=== PATIENT | male | born 1955 | race Caucasian/White ===

== ENCOUNTER 2024-03-06 19:14 | Emergency (ER) | payer MEDICARE, OTHER, SELFPAY ==
[2024-03-06 19:19] VITALS: BP 160/90
[2024-03-06 20:00] LABS: % Basophils 0.5 % (0-2); % Eosinophils 0.1 % (0-6); % Immature Granulocytes 0.5 % (0-0.5); % Lymphocytes 18.5 % (20.5-51.1); % Monocytes 6.2 % (1.7-9.3); % Neutrophils 74.2 % (42.2-75.2); Absolute Lymphocytes 1.5 10^3/uL (1.2-3.4); Absolute Monocytes 0.5 10^3/uL (0.1-0.6); Absolute Neutrophils 6.2 10^3/uL (1.4-6.5); Hematocrit 34.8 % (39.0-52.0); Hemoglobin 11.5 g/dL (13.0-18.0); Mean Corpuscular Hgb 29.6 pg (27.0-31.0); Mean Corpuscular Volume 89.5 fL (80.0-94.0); Mean Platelet Volume 10.4 fL (7.4-10.4); Nucleated Red Blood Cells % 0 % (-); Platelet Count 165 10^3/uL (130-400); Red Blood Cell Count 3.89 10^6/uL (4.70-6.10); Red Cell Dist. Width 13.8 % (11.5-14.5); White Blood Cell Count 8.3 10^3/uL (4.8-10.8)
[2024-03-06 20:21] LABS: ALT (SGPT) 18 U/L (0-50); AST (SGOT) 23 U/L (17-59); Albumin 4.1 g/dl (3.5-5.0); Alkaline Phosphatase 46 U/L (38-126); Blood Urea Nitrogen 25 mg/dl (9-20); Calcium 8.9 mg/dl (8.4-10.2); Carbon Dioxide 30 mmol/L (22-30); Chloride 100 mmol/L (98-107); Glucose 110 mg/dl (70-99); Sodium 138 mmol/L (135-145); Total Bilirubin 0.4 mg/dl (0.2-1.3); Total Protein 6.6 g/dl (6.3-8.2); eGFR > 60.00
[2024-03-06 20:25] LABS: Troponin I 0.015 ng/ml
[2024-03-06 22:05] VITALS: BP 137/85
[2024-03-06 22:06] VITALS: BMI 29.3
[2024-03-06 23:00] VITALS: BP 143/99
[2024-03-06 23:53] LABS: NT-proBNP 1250 pg/ml
[2024-03-07] VITALS: BP 164/102
[2024-03-07 01:00] VITALS: BP 156/87
[2024-03-07 01:11] VITALS: BP 157/96
[2024-03-07] MEDS: LASIX 40 MG IV (01:11)
--- NOTE | 2024-03-07 01:39 | ED.GENMED ---
History of Present Illness
General
Chief Complaint: Cardiac Symptoms
Source: patient and family (Daughter, sister)
Exam Limitations: none
Time Seen by Provider: 03/06/24 21:39
Nursing documentation reviewed up to this point in time: agreed with
History of Present Illness
History of Present Illness:
68-year-old male with a past medical history of atrial fibrillation status postcardiac ablation currently on Eliquis, hypertension who presents to the ER with his daughter for evaluation of shortness of breath. Patient reports that symptoms have
been ongoing for about 2 weeks-- he says shortness of breath mainly with laying flat and with heavy exertion. He has not had any chest pain but he has had episodes of palpitations that he has attributed to 'panic attacks.' He has not had any
cough. He says that initially he attributed the symptoms to bronchitis as he has recurrent bronchitis around this time of year and oftentimes does not get a cough however he went to his primary doctor today finally and apparently an EKG showed he
was in atrial fibrillation again and he came to the ER. His normal crosscutter is Dr. Rowell. He denies any fevers, chills. He has not noticed significant swelling in the legs although he has noticed some swelling in the abdominal wall. No
other complaints noted. He is compliant with all of his medications including his Eliquis.
Past History
Past History
ED Past Medical History: Arrthythmia, HTN, Psychiatric (Embrol for psoriatic arthritis Klonopin and Seraquel started one week ago. Hx anxiety.) and Other (Herniated discs C-3,4,5 right shoulder surgery 5 yrs ago from work accident)
ED Past Surgical History: Other (multiple left knee surgeries)
Social History
Tobacco: Smoker
Alcohol: Chronic alcoholic
Drug: Marijuana
Personal:
Living: with family
Employment: Disabled
Family History
Family History: Other (reviewed and noncontributory)
Review of Systems
Review of Systems
All Other Systems: ROS reviewed and negative except as documented in HPI and ROS
Constitutional: Denies fever or chills
Respiratory: Reports trouble breathing; Denies cough
Cardiac: Reports palpitations; Denies chest pain or syncope
ABD/GI: Denies abdominal pain, nausea or vomiting
: Denies flank pain
Musculoskeletal: Denies edema, neck pain or back pain
Neurological: Denies dizzy or headache
Phy Exam
Physical Exam
Physical Exam:
General: Awake, alert, oriented x3; no acute distress
Head: Normocephalic, atraumatic
Eyes: Conjunctiva normal
Throat: Airway intact, handling secretions
Neck: Trachea midline, no JVD
Lungs: Clear to auscultation bilaterally, no wheezing, rales, rhonchi
Heart: Regular rate and irregular rhythm, systolic murmur
Abd: Soft, non distended, nontender
Neuro: No gross deficits
Extremities: Trace edema around the ankles, good pulses in all extremities
Scores
Heart Failure Risk
Heart Failure Risk Score: Yes
History of Stroke or TIA: No
History of intubation for respiratory distress: No
Heart rate on ED arrival >/= 110: No
SaO2 <90% on arrival on room air: No
HR >/=110 during 3min walk test (or too ill to perform test): No
ECG has acute ischemic changes: No
Urea >/=12mmol/L (BUN 33.6mg/dL): No
Serum CO2>/=35mmol/L: No
Troponin I or T elevated to VA Level (0.4mg/dL): No
NT-proBNP >/=5,000ng/L (5,000pg/ml): No
HF Risk Score: 0
Admission Status: LOW RISK 2.8% Consider discharge to home with f/u visit to PCP/Airplane Technician
Heart Score for Chest Pain Patients
STEMI patient?: Not applicable
Withdrawal Assessment of Alcohol
Withdrawal Assessment Completed?: Not applicable
Course
Orders/Labs/Results
Orders:
Orders
03/06/24 19:24
Electrocardiogram (*1) Urgent
Reason for Study: Atrial Fibrillation
EKG- Treatment ONCE
CR Chest - 2 Views Urgent
Comment:
Reason For Exam: SOB; CHEST PAIN
03/06/24 19:39
Complete Blood Count/With Diff Urgent
Comprehensive Metabolic Panel Urgent
Troponin I Urgent
03/06/24 23:24
NT-proBNP Urgent
03/07/24 00:49
Furosemide [Lasix] 40 mg IV NOW STA
Abnormal Lab Results
03/06/24
19:39
RBC 3.89 L 10^6/uL
(4.70-6.10)
Hgb 11.5 L g/dL
(13.0-18.0)
Hct 34.8 L %
(39.0-52.0)
Lymphocytes % 18.5 L %
(20.5-51.1)
BUN 25 H mg/dl
(9-20)
Glucose 110 H mg/dl
(70-99)
03/06/24 19:39
03/06/24 19:39
Vital Signs
Initial and Last Documented VS:
Initial Vital Signs
Temp Pulse Resp BP Pulse Ox
36.8 C 76 24 160/90 97
03/06/24 19:19 03/06/24 19:19 03/06/24 19:19 03/06/24 19:19 03/06/24 19:19
Last Documented Vital Signs
Temp Pulse Resp BP Pulse Ox
36.8 C 73 13 157/96 95
03/06/24 19:19 03/07/24 01:15 03/07/24 01:15 03/07/24 01:11 03/07/24 01:15
MDM/Problems Addressed
Differential Diagnosis Includes:
Symptomatic A-fib, CHF, pneumonia/bronchitis
MDM/Problems Addressed:
68-year-old male presents for evaluation of shortness of breath over the past 2 weeks associated with some swelling of the abdomen, orthopnea, palpitations. Found to be in A-fib for the first time since his cardiac ablation at PCP office today.
Follows with Dr. Rowell for cardiology. He was hypertensive in triage and blood pressure normalized by my assessment. Rest of his vitals are within normal limits including respiratory rate and pulse ox. Physical exam as above. He had lab
work sent off including a CBC which showed stable anemia, CMP which showed no clinically significant abnormalities. Troponin undetectable proBNP marginal at 1250. Chest x-ray reviewed by me shows no overt pulmonary edema. My suspicion is that
this may be some mild CHF triggered by atrial fibrillation. Fortunately he is rate controlled with heart rate in the 60s or 70s here. Furthermore does not appear markedly volume overloaded. Discussed case with cardiology, they can schedule for
outpatient cardioversion and close follow-up in the office. I spoke to the patient at length and offered admission versus discharge with close follow-up plan through cardiology as described; after discussion with patient, daughter as well as
patient's sister who is a nurse practitioner patient ultimately opted to trial outpatient management. Will give a dose of IV Lasix and provide dose for the next few days. Advised him to monitor blood pressure, fluid intake, salt intake closely
over the next few days and to return immediately if he feels symptoms are worsening at any point. He feels very comfortable with this plan. All questions answered.
Chronic conditions affecting care:
Atrial fibrillation
Acute Exacerbation and/or Progression of Chronic Illness:
Acutely hypertensive improved without intervention continue to monitor but no emergent antihypertensives indicated at this point
Acute Exacerbation and/or Progression of Chronic Illness: HTN
*Radiology
Radiology exam reviewed: preliminary read by ED provider
*Pulse Oximetry
Patient hypoxic: no
*EKG
Interpreted by ED Provider?: Yes
Comparison EKG: changes noted (A-fib)
Heart Rate: 66
Rate: normal
Rhythm: a-fib
Gary: normal axis
QRS Pattern: wide non-specific
Ischemia: no ischemia
*Critical Care Note
Total Time (30-74mins, 75-104mins- exclusive of procedures): Not Applicable
Data Reviewed
Source: patient, records and family
Patient Management
Social determinants of health affecting care: Strong social support
Discussion with other providers: Wrapper Layer And Examiner Soft Work (Discussed with cardiology)
Escalation/DeEscalation of care consider admission/obs:
Offered admission, using shared decision making opted for discharge with close follow-up
ED Attending Note
-
Portions of this chart may have been created with voice recognition software.� Occasional wrong word or��sound alike� substitutions may have occurred due to the inherent limitations of voice recognition software.
Discharge Plan
Departure
Patient Disposition: Home (Routine Discharge)
Date of Disposition: 03/07/24
Time of Disposition: 00:49
Patient with high blood pressure during this ER visit?: Yes
Discharge Problem:
Atrial fibrillation, CHF (congestive heart failure)
Instructions: Atrial fibrillation - Discharge instructions, *CBC Heart Failure Instructions
Prescriptions:
New
furosemide [Lasix] 20 mg tablet
20 mg PO DAILY Qty: 5 0RF
No Action
mirtazapine 30 MG tablet
45 mg PO HS
diazepam [Valium] 10 MG tablet
10 mg PO TID PRN (Reason: anxiety)
ustekinumab [Stelara] 45 MG/0.5 ML syringe
45 mg SC [id number]
lorazepam 1 MG tablet
2 mg PO TID
apixaban [Eliquis] 5 MG tablet
5 mg PO BID
sotalol 80 MG tablet
80 mg PO BID Qty: 60 5RF
carisoprodol 350 MG tablet
350 mg PO TID
oxycodone-acetaminophen 5 MG/325 MG tablet
2 tab PO Q4H
metronidazole 500 MG tablet
500 mg PO TID Qty: 42 0RF
acetaminophen [Tylenol Extra Strength] 500 MG tablet
500 mg PO Q4 0RF
cefpodoxime 200 MG tablet
200 mg PO BID Qty: 28 0RF
docusate sodium 100 MG capsule
100 mg PO BID Qty: 60 0RF
Referrals:
Robert Brian DO [Family Provider] -
Angelique Rowell MD [Active] - Follow up in 2-3 days
Activity Restrictions/Additional Instructions:
Thank you for visiting the Emergency Department at [facility].
1. Please schedule a follow up appointment as directed. Call first thing tomorrow morning to make an appointment.
2. If indicated, please take your medications as instructed and indicated on discharge paperwork.
3. If any of your symptoms do not improve, or persist, or become more severe within 6-12 hours, please return to the emergency department for further care.
4. Please return to the emergency department if you develop a headache, neck pain/stiffness, fever greater than 100.4F, chest pain, shortness of breath, persistent nausea, vomiting, slurred speech, difficulty walking, numbness/tingling, weakness,
signs of infection or any other symptoms that are worrisome to you.
Please call [phone] if you have any questions.
Interventions
Interventions:
*Risk Screen - Suicide Last Done: 03/06/24 19:19
*General Assessment Last Done: 03/06/24 21:53
*Neglect/Abuse Screening Last Done: 03/06/24 19:19
ED- Fall Risk Assessment Last Done: 03/06/24 21:53
*ED COVID-19 Vaccine History Last Done: 03/06/24 21:53
ED- Pulmonary Assessment Last Done: 03/06/24 22:06
ED- Cardiac Assessment Last Done: 03/06/24 22:06
Discharge Date and Time
Print Language: YORUBA
== END 2024-03-07 01:25 | disposition home or self-care (01) ==
LOC: EMR 19:14
PROVIDERS: EMERGENCY PHYSICIAN Emergency Medicine; FAMILY PHYSICIAN Family Medicine
DX: I48.91 Unspecified atrial fibrillation (principal); I50.9 Heart failure, unspecified; I11.0 Hypertensive heart disease with heart failure; Z79.01 Long term (current) use of anticoagulants; F17.200 Nicotine dependence, unspecified, uncomplicated
CPT/HCPCS: 99285; 96374; 71046; 80053; 83880; 84484; 85025; 93005

== ENCOUNTER 2024-04-01 03:19 | Inpatient (IN) | payer MEDICARE, OTHER, SELFPAY ==
[2024-03-31 22:52] VITALS: BP 92/58
[2024-03-31 23:03] VITALS: BP 92/70
[2024-03-31 23:18] VITALS: BMI 27.5
[2024-03-31 23:21] LABS: % Basophils 0.3 % (0-2); % Eosinophils 0.3 % (0-6); % Immature Granulocytes 0.5 % (0-0.5); % Lymphocytes 10.6 % (20.5-51.1); % Monocytes 11.5 % (1.7-9.3); % Neutrophils 76.8 % (42.2-75.2); Absolute Immature Granulocytes 0.1 10^3/uL (0-0.05); Absolute Lymphocytes 1.3 10^3/uL (1.2-3.4); Absolute Monocytes 1.4 10^3/uL (0.1-0.6); Absolute Neutrophils 9.3 10^3/uL (1.4-6.5); Hematocrit 31.7 % (39.0-52.0); Hemoglobin 10.7 g/dL (13.0-18.0); Mean Corp Hgb Conc. 33.8 g/dL (33.0-37.0); Mean Corpuscular Hgb 29.4 pg (27.0-31.0); Mean Corpuscular Volume 87.1 fL (80.0-94.0); Mean Platelet Volume 9.7 fL (7.4-10.4); Nucleated Red Blood Cells % 0 % (-); Platelet Count 307 10^3/uL (130-400); Red Blood Cell Count 3.64 10^6/uL (4.70-6.10); Red Cell Dist. Width 13.3 % (11.5-14.5); White Blood Cell Count 12.1 10^3/uL (4.8-10.8)
[2024-03-31 23:24] VITALS: BP 114/81
--- NOTE | 2024-03-31 23:26 | ED.GENMED ---
History of Present Illness
General
Chief Complaint: Change in Mental Status
Source: patient, records and family
Time Seen by Provider: 03/31/24 23:12
History of Present Illness
History of Present Illness:
This patient is a 68-year-old male who has been reportedly confused for the last 2 days. Daughter is primary historian as she is bedside and offers most of the information. She states that her mother contacted her in the middle of the night of
March 29 leading into March 30 with report that patient was 'not making any sense', described as words being slurred or responding inappropriately. This is wax and wane over the last 2 days. He is also noted to be increasingly clumsy. Last
night, patient states that he went to the bathroom and just suddenly felt imbalance and fell down. He did not lose consciousness or hit his head. However, he was unable to get back up and had to crawl over period of approximately 4 hours to a
chair. This morning at around noon daughter came and found him in the bed which would be unusual for him. She came back at 3 PM and he was still in the bed so she got him up and brought him to a chair. She states at that time it sounded like his
lungs were 'congested'. She noted that he seemed to have difficulty with balance while assisting him to the chair. Given symptoms, decision made to bring him here. Patient does describe events of the fall last night. He is at times sleepy but
arousable to voice and interactions. He has a very mild left frontal headache. He denies neck pain, numbness, tingling, change in vision, change in speech, palpitations, chest pain, dyspnea. He says he is 'fighting a cold', associated with a
recent cough but denies fever nausea or vomiting. He denies abdominal pain. He notes pain at the right anterior lower costal area as well as the right posterior mid back/thorax area that developed after he fell. He denies extremity pain or other
complaints.
Past History
Past History
ED Past Medical History: Arrthythmia, HTN, Psychiatric (Embrol for psoriatic arthritis Klonopin and Seraquel started one week ago. Hx anxiety.) and Other (Herniated discs C-3,4,5 right shoulder surgery 5 yrs ago from work accident, nonischemic
cardiomyopathy)
ED Past Surgical History: Cardiac and Other (multiple left knee surgeries, thoracic aortic aneurysm repair)
Social History
Tobacco: Smoker
Alcohol: Former
Drug: Marijuana
Personal:
Living: with family
Employment: Disabled
Family History
Family History: Other (reviewed and noncontributory)
Phy Exam
Physical Exam
Physical Exam:
GENERAL: Awake but sleepy, in no apparent distress
EYE: pupils equal and reactive, no photophobia, EOMI, no nystagmus
NECK: Supple, no significant adenopathy, no midline tenderness.
ENT: o/p clr, mm slightly dry
CARDIAC: Irregularly irregular, tachycardic
LUNGS: Equal breath sounds bilaterally, no acute respiratory distress, scattered wheezes noted. There is tenderness to palpation noted at the left inferior anterior chest wall without associated bruising, swelling, crepitus, deformity.
ABDOMEN: Soft, without focal tenderness, no r/g, no cvat
NEUROLOGICAL: Awake and oriented, no focal neuro deficits, [id number] normal, motor 5 out of 5, sensory intact, cranial nerves II through XII intact
SKIN: Warm and dry, skin intact. There is a healing abrasion noted at the left forearm without secondary infection
MUSCULOSKELETAL: No edema, well perfused.
PSYCH: Normal and appropriate interaction but sleepy.
BACK: No midline tenderness to palpation. Small linear abrasion noted at the right posterior thorax/mid back area without associated deformity
Course
Orders/Labs/Results
Orders:
Orders
03/31/24 23:11
EKG [Electrocardiogram (*1)] Urgent
Reason for Study: Tachycardia
EKG- Treatment ONCE
03/31/24 23:12
Complete Blood Count/With Diff Urgent
Comprehensive Metabolic Panel Urgent
03/31/24 23:21
Urinalysis Reflex To Culture Urgent
Date Specimen was Collected: 03/31/24
Time Specimen was Collected: 23:21
03/31/24 23:25
Cardiac Monitoring- Treatment ONCE
Pulse Ox/cont/shift [RESP] Urgent
Quantity: 1
03/31/24 23:38
CPK [Creatine Phosphokinase] Urgent
Lactic Acid Q4H
Comment: CANCEL 2nd LACTIC ACID IF 1st LACTIC ACID IS LESS THAN 2
Troponin I Urgent
Blood Culture Q30M
MIKE Source: Blood/Venous
Specimen Description:
Influenza A+B Rapid Molecular Urgent
MIKE Source: Nasal Swab
Specimen Description:
04/01/24 00:00
CT Cervical Spine W/o Iv Contr Urgent
Reason For Exam: fall on eliquis
CT Head W/o Iv Contrast Urgent
Reason For Exam: fall on eliquis
04/01/24 00:02
CR Ribs-right 3 Vw W/pa Chest* Urgent
Reason For Exam: fall
04/01/24 00:48
CefTRIAXone [Rocephin] 1,000 mg IV NOW STA
04/01/24 00:50
Doxycycline [Vibramycin] 100 mg PO NOW STA
04/01/24 01:01
COVID-19 Antigen Urgent
Source: Nasal Swab
Blood Culture Q30M
MIKE Source: Blood/Venous
Specimen Description:
04/01/24 03:00
Admit/Transfer Patient As Directed
Co-Sign Provider:
Level of Care: Inpatient admission
Assign to:: IMU- Intermediate Care
Physician / Group: Sonu
Diagnosis: Pneumonia, Sepsis, A-Fib with RVR
Reason for Hospitalization: Pneumonia, Sepsis, A-Fib with RVR
Expected length of stay greater than two midnights?: Yes
ELOS- Estimated Length of Stay in days: 4
I certify the patient meets the requirements for IP care: Yes
PRN Pain Medication Management As Directed
May give lesser potent ordered pain med per pt: Yes
preference::
Protocol:: Medication orders for pain may be administered in a
manner that supports deferring to patient preference
when the pt is:
- Requesting an ordered lesser potent pain medication.
Least to most potent pain medications are defined
as: acetaminophen < NSAID < tramadol < opioids
(morphine, oxycodone, hydromorphone).
- Requesting a lesser dose of the same medication IF
ORDERED.
- Requesting a less intrusive route of administration
if both routes are prescribed by the provider (PO <
IV).
04/01/24 03:02
Code Status As Directed
Resuscitation Status: Full Code
04/01/24 03:14
Acetaminophen [Tylenol] 650 mg .ROUTE .STK-MED ONE
04/01/24 03:26
Acetaminophen [Tylenol] 650 mg PO Q4HPRN PRN
Albuterol Nebs [Ventolin Nebules] 2.5 mg INH R Q4HPRN PRN
Diltiazem 125 mg/125 ml Nss [Cardizem] 125 mg in 125 ml IV PER PROTOCOL
Initial dose in mg/hr, then titrate:: 5
Titrate to keep:: Heart rate 80-100 bpm
Titrate by mg/hr:: 5 mg/hr
Frequency of titrations (minutes):: 15
Maximum dose in mg/hr:: 15
HYDROmorphone [Dilaudid] 0.5 mg IV Q4HPRN PRN
Ondansetron Injectable [Zofran] 4 mg IV Q6HPRN PRN
Oxycodone/Acetaminophen [Percocet 5/325] 2 tablet PO Q4H PRN
04/01/24 03:26
CARDIOLOGY CONSULT Routine
Consulting Provider: Hector,Irfan M.
Was physician already notified: No
Reason for consult: A-Fib with RVR
Consult Notification Routine
Specialty to Notify: Cardiology
Date consulting provider notified: 04/01/24
Time consulting provider notified: 08:36
Notified:: Provider
Activity As Directed
Activity Level: Ambulate
With Assistance
Bladder Scan As Directed
Follow Bladder Retention/Intermittent Cath Algorithm?: Yes
PRN if no void in __ hours: 6
Frequency: Per Retention Algorithm
If Bladder Scan Result >: 400
then:: Straight cath
EKG with chest pain [ECG as needed] As Directed
ECG as needed for:: Chest Pain
I/O [Intake/ Output] As Directed
Frequency: Per unit guidelines
Neurological Checks As Directed
Frequency: q4h
Straight Cath As Directed
Frequency: Per Retention Algorithm
Additional Instructions: straight cath as needed per acute urinary retention algorithm for 24 hrs
Additional Instructions: for bladder scan greater than 400 mL
Vital Signs As Directed
Frequency: Per unit guidelines
Weight As Directed
Frequency: Daily
Oxygen Therapy [O2 Therapy] [RESP] Routine
Titrate/Wean O2 to maintain O2 sat greater than (%): 94
Ot Eval And Treat Routine
PT Consult [Pt Eval And Treat] Routine
Activity Level: Ambulate
With Assistance
04/01/24 04:00
Lactated Ringers [Lr] 1,000 ml IV 80 mls/hr
04/01/24 04:26
B12 [Vitamin B12] Routine
Basic Metabolic Panel IN AM
Complete Blood Count/No Diff IN AM
Glycohemoglobin (HgbA1c) Routine
Iron Routine
TSH Reflex To Free T4 Routine
Total Iron Binding Routine
Troponin I Q6H
Urine Microscopic Reflex Cult Urgent
Urine Culture Urgent
MIKE Source: U
Specimen Description:
Date Specimen was Collected: 03/31/24
Time Specimen was Collected: 23:21
04/01/24 06:00
EKG [Electrocardiogram (*1)] IN AM
Reason for Study: Chest Pain
Regular
At Your Request: Full Participation
04/01/24 08:00
Apixaban [Eliquis] 5 mg PO BID
Doxycycline [Vibramycin] 100 mg PO Q12
Guaifenesin [Mucinex] 1,200 mg PO Q12
Lorazepam [Ativan] 1 mg PO TID
Metoprolol Xl [Toprol Xl] 100 mg PO DAILY
04/01/24 11:30
Troponin I Q6H
04/01/24 17:23
Troponin I Q6H
04/02/24 04:00
CefTRIAXone [Rocephin] 1,000 mg IV Q24H
Abnormal Lab Results
03/31/24 03/31/24
23:12 23:38
WBC 12.1 H 10^3/uL
(4.8-10.8)
RBC 3.64 L 10^6/uL
(4.70-6.10)
Hgb 10.7 L g/dL
(13.0-18.0)
Hct 31.7 L %
(39.0-52.0)
Abs Immat Gran (auto) 0.1 H 10^3/uL
(0-0.05)
Absolute Neuts (auto) 9.3 H 10^3/uL
(1.4-6.5)
Absolute Monos (auto) 1.4 H 10^3/uL
(0.1-0.6)
Neutrophils % 76.8 H %
(42.2-75.2)
Lymphocytes % 10.6 L %
(20.5-51.1)
Monocytes % 11.5 H %
(1.7-9.3)
Sodium 134 L mmol/L
(135-145)
BUN 34 H mg/dl
(9-20)
Glucose 113 H mg/dl
(70-99)
Calcium 8.3 L mg/dl
(8.4-10.2)
Creatine Kinase 242 H U/L
(55-170)
Albumin 3.2 L g/dl
(3.5-5.0)
03/31/24 23:12
03/31/24 23:12
Vital Signs
Initial and Last Documented VS:
Initial Vital Signs
Temp Pulse Resp BP Pulse Ox
97.9 F 75 18 92/58 97
03/31/24 22:52 03/31/24 22:52 03/31/24 22:52 03/31/24 22:52 03/31/24 22:52
Last Documented Vital Signs
Temp Pulse Resp BP Pulse Ox
99.0 F 85 29 118/81 94
04/03/24 07:35 04/03/24 08:00 04/03/24 08:00 04/03/24 08:00 04/03/24 08:44
*Critical Care Note
Total Time (30-74mins, 75-104mins- exclusive of procedures): Not Applicable
Update Note
Update Note:
Patient presents to the Emergency Department with __reported confusion
Number and Complexity of Problems Addressed at the Encounter
� Chronic conditions affecting care:
� Acute Exacerbation and/or Progression of Chronic Illness:
� Differential Diagnosis includes: But not limited to pneumonia, influenza, UTI, intracranial bleed, etc. etc.
Amount and/or Complexity of Data to be Reviewed and Analyzed
� I performed an independent evaluation of and my interpretation is:
EKG: Read by me, irregularly irregular suspect A-fib with RVR, right bundle branch block, no acute ischemia
CT:
Xrays:
Laboratory Studies: Mild white blood cell count elevation, relatively baseline anemia
Other:
� Review of other/old records reveals: Patient was admitted March 2021 with sepsis secondary to pneumonia requiring a chest tube for a parapneumonic pleural effusion
� Clinical information was obtained by an independent historian: Daughter who is bedside
� Prescriptions/Medications Considered but not given:
� Further testing considered but not performed:
Risk of Complications and/or Morbidity or Mortality of Patient Management
� Social determinants of health affecting care:
� Discussion with other providers (PCP, Hospitalists, Consultants, etc):
� Escalation of care including admission/observation vs risk of discharge considered: 12:43 AM consideration for IV fluids given mild hypotension however hx of hf and concern this could exacerbate this...in f/u, his hr now 90's
and sbp nl. Pt resting comfortably, occas cough noted. No bleeding/fx noted on my review of CT however formal report pending. Suspect R LL pna on cxr, no specific effusion noted, ?fx distal rib 12/02, no ptx. Abx ordered, u/a pending.
ED Attending Note
-
Portions of this chart may have been created with voice recognition software.� Occasional wrong word or��sound alike� substitutions may have occurred due to the inherent limitations of voice recognition software.
Discharge Plan
Departure
Patient Disposition: Admit
Date of Disposition: 04/01/24
Time of Disposition: 01:55
Admit to: Telemetry
Admit to doctor: sonu
Presentation/result/management discussed w/ accepting MD/DO: Hospitalist
Discharge Problem:
Pneumonia
Interventions
Interventions:
*Risk Screen - Suicide Last Done: 03/31/24 23:14
*General Assessment Last Done: 03/31/24 22:52
*Neglect/Abuse Screening Last Done: 03/31/24 23:13
ED- Fall Risk Assessment Last Done: 04/01/24 03:05
*ED COVID-19 Vaccine History Last Done: 03/31/24 22:52
*Nursing Disposition Last Done: 04/01/24 18:57
ED- Pulmonary Assessment Last Done: 04/01/24 03:05
ED- Neurological Assessment Last Done: 04/01/24 03:05
ED- Cardiac Assessment Last Done: 04/01/24 03:05
ED Swallowing Screen Last Done: 04/01/24 01:20
Discharge Date and Time
Discharge Date/Time: 04/01/24 18:45
[2024-03-31 23:32] LABS: ALT (SGPT) 18 U/L (0-50); AST (SGOT) 34 U/L (17-59); Albumin 3.2 g/dl (3.5-5.0); Alkaline Phosphatase 99 U/L (38-126); Blood Urea Nitrogen 34 mg/dl (9-20); Calcium 8.3 mg/dl (8.4-10.2); Carbon Dioxide 27 mmol/L (22-30); Chloride 100 mmol/L (98-107); Estimated Creatinine Clearance 76 ml/min; Glucose 113 mg/dl (70-99); Potassium 3.6 mmol/L (3.5-5.1); Sodium 134 mmol/L (135-145); Total Bilirubin 0.6 mg/dl (0.2-1.3); Total Protein 6.5 g/dl (6.3-8.2); eGFR > 60.00
[2024-04-01] VITALS (29 sets, daily range): BP systolic 88–153; BP diastolic 57–96; PULSE 96–121; O2SAT 98; BMI 27.5
[2024-04-01 00:13] LABS: Creatine Phosphokinase 242 U/L (55-170)
[2024-04-01 00:14] LABS: Lactic Acid 0.9 mmol/L (0.7-2.0)
[2024-04-01 00:25] LABS: Troponin I 0.033 ng/ml
[2024-04-01] MEDS: VIBRAMYCIN 100 MG PO ×3 (01:26→19:37)
[2024-04-01] MEDS: ROCEPHIN 1000 MG IV (01:26)
[2024-04-01 02:06] LABS: COVID-19 Antigen Negative (Negative)
--- NOTE | 2024-04-01 03:06 | HPS.HSE ---
Family Physician
-
Family Physician: Robert Brian
Chief Complaint
-
Confusion
History of Present Illness
Patient is a 68y M with PMH significant for A-Fib, hypertension and chronic pain who presents to ED for evaluation of confusion / recent falls. History obtained from patient and his daughter at the bedside. Patient has been more confused over
the past several days or so. Family has noted that he has had cough and audible chest congestion during that time. Last PM he suffered a fall in the middle of the night. Fall was unwitnessed. Patient states that he crawled back to bed and this
took either 2 hours or 4 hours (he provides variable accounts).
Family states that he slept all day today. This evening he was seemingly even more confused and had continued chest congestion and was brought to the ED for further evaluation.
In the ED, patient is awake and alert. He seems to answer questions appropriately at present. He is somewhat ill appearing with flushed facies and chills.
Medical History
Past Medical History
Past Medical History: Reports Other
Additional Past Medical History:
Paroxysmal Atrial Fibrillation
Hypertension
Dilated Cardiomyopathy
Chronic Anemia
Lumbar DDD
Chronic Pain Syndrome
Thoracic Aortic Aneurysm
Past Surgical History: Reports Other
Additional Past Surgical History:
Lumbar Fusion / Cage
Thoracic Aortic Aneurysm Repair, PVI Ablation, Left Atrial Appendage Ligation (2021)
Social History
Tobacco: Non-smoker
Alcohol: Former (History of alcohol use disorder. Sober x 7 years.)
Drug: Marijuana (Has his 'medical card'.)
Family History
Family History: Not pertinent
Allergies / Home Medications
Allergies reflects when Allergies were last updated in [email or web address].
Home Medications with original date entered in [email or web address]
Allergy/Medication List:
Allergies
Allergy/AdvReac Type Severity Reaction Status Date / Time
Penicillins Allergy Unknown Unknown Verified 08/05/22 16:22
Home Medications
mirtazapine 30 mg tablet 45 mg PO HS Mental Health/Anxiety 02/23/16
apixaban 5 mg tablet (Eliquis) 5 mg PO BID Blood clot prevention/tx 07/26/18
lorazepam 1 mg tablet 2 mg PO TID ANXIETY 07/26/18
carisoprodol 350 mg tablet 350 mg PO TID Muscle spasms 03/18/21
oxycodone-acetaminophen 5 mg-325 mg tablet 2 tab PO Q4H Pain 03/18/21
furosemide 20 mg tablet (Lasix) 20 mg PO DAILY #5 tabs 03/07/24
losartan 25 mg tablet 25 mg PO DAILY 04/01/24
metoprolol succinate 100 mg tablet,extended release 24 hr 100 mg PO DAILY 04/01/24
ondansetron 8 mg disintegrating tablet See Rx Instructions .Route .COMPLEX 04/01/24
Review of Systems
-
History Source: Patient and Family
A 12 point ROS was completed and negative except as noted: Yes
Constitutional: Reports Fatigue and Chills; Denies Fever
EENT: Denies Sore Throat
Respiratory: Reports Cough and Trouble Breathing
Cardiac: Reports Chest Pain; Denies Palpitations
Abdomen/GI: Denies Abdominal Pain, Nausea, Vomiting or Diarrhea
: Denies Dysuria, Frequency or Flank Pain
Musculoskeletal: Reports Joint Pain and Other (Back pain); Denies Edema
Neurological: Denies Dizzy, Headache, Weakness or Numbness
Psych: Denies Depression or Anxiety
Physical Exam
Vital Signs
Vital Signs
Temp Pulse Resp BP Pulse Ox
102 F H 137 26 153/82 94
04/01/24 03:04 04/01/24 03:04 04/01/24 03:04 04/01/24 03:04 04/01/24 03:04
Physical Exam
General: Other (68y M with flushed facies. Pos chills / tremulous.)
HEENT: Other (Dry MM. Neck supple.)
Respiratory: Other (Coarse breath sounds over the R base. No wheezes / rales.)
Cardiac: S1/S2, Irregular Rhythm and Tachycardia; No Murmur
GI: Soft, Non Tender, Non Distended and Normal Bowel Sounds
Musculoskeletal: No Clubbing, No Cyanosis and No Edema
Neuro: Awake, Alert and Oriented
Laboratory Results
-
03/31/24 23:12
03/31/24 23:12
Laboratory Results
Lactic Acid Cancelled 04/01/24 03:30
Total Bilirubin 0.6 mg/dl (0.2-1.3) 03/31/24 23:12
AST 34 U/L (17-59) 03/31/24 23:12
ALT 18 U/L (0-50) 03/31/24 23:12
Alkaline Phosphatase 99 U/L (38-126) 03/31/24 23:12
Troponin I 0.033 ng/ml 03/31/24 23:38
Impression/Plan
-
A/P: Patient is a 68y M with PMH significant for A-Fib, cardiomyopathy and chronic opioid dependence who presents to ED for evaluation of recent falls, confusion and cough.
RLL Pneumonia
Sepsis secondary to the above
Acute TME secondary to the above
- Admit for further evaluation and treatment.
- Patient presents with tachycardia, tachypnea, leukocytosis and CXR showing R base infiltrate.
- Abx with ceftriaxone and doxycycline.
- Supportive care including mucolytics, O2 support, etc.
- Follow for clinical improvement.
- Confusion appears to be improving as well - follow for continued improvement / other changes.
Fall at Home
- Patient with unwitnessed fall last PM ( into Wednesday).
- Reports pain in the R lower chest - no overlying ecchymosis / etc.
- Small abrasion to the L wrist and L chest / upper abdomen.
- CT head and CT C-spine unremarkable.
- PT / OT evaluations.
- Follow for improvement in gait / stability with treatment of sepsis / pneumonia.
ISAI
- SCr = 1.2 compared to baseline of 0.8.
- Likely secondary to sepsis as noted above.
- Hold diuretic acutely (this was only added recently).
- Hold ARB.
- IVF support and follow for improvement.
Paroxysmal A-Fib with Rapid Ventricular Response
- BP better after IVFs in the ED; however, tachycardia persists in the 130s.
- Begin IV diltiazem and titrate as needed for rate control.
- Continue / resume usual metoprolol.
- Continue Eliquis for stroke risk reduction.
- Cardiology evaluation.
Dilated Cardiomyopathy
- Most recent Echo showed improved EF.
- Hold Lasix as noted above.
- Follow I/Os, daily weights, etc.
Anemia of Chronic Disease
- Hgb seems at / near usual baseline.
- Check iron studies, B12, etc.
- Follow for changes.
Chronic Pain Syndrome
Chronic Opioid Dependence
Chronic BZD Dependence
Polypharmacy
- Patient on multiple sedating meds including opioids, BZDs, muscle relaxants, etc.
- Continue oxycodone PRN.
- Decrease lorazepam to 1mg TID and hold for sedation.
- Stop carisoprodol and mirtazapine for now.
- Follow-up with outpatient pain management / PCP regarding adjustments in his chronic med regimen.
DVT Prophylaxis: On Eliquis
Code Status: Full
[2024-04-01] MEDS: TYLENOL 650 MG PO ×2 (03:26→23:41)
[2024-04-01 04:35] LABS: Urine Albumin 3+ (Neg - Trace); Urine Bilirubin Negative (Negative); Urine Character Clear (Clear); Urine Color Amber; Urine Glucose Negative (Negative); Urine Ketone Negative (Negative); Urine Leukocyte 1+ (Negative); Urine Nitrite Negative (Negative); Urine Occult Blood 4+ (Negative); Urine Specific Gravity 1.015 (<1.030); Urine Urobilinogen 1+ (Neg - 1+)
[2024-04-01] MEDS: LR 1000 IV (04:38)
[2024-04-01] MEDS: CARDIZEM 125 IV ×2 (04:38→15:19)
[2024-04-01] MEDS: PERCOCET 5/325 2 TABLET PO ×2 (04:38→13:47)
[2024-04-01 04:39] LABS: Hematocrit 28.5 % (39.0-52.0); Hemoglobin 9.7 g/dL (13.0-18.0); Mean Corpuscular Volume 85.1 fL (80.0-94.0); Mean Platelet Volume 9.5 fL (7.4-10.4); Platelet Count 274 10^3/uL (130-400); Red Blood Cell Count 3.35 10^6/uL (4.70-6.10); Red Cell Dist. Width 13.1 % (11.5-14.5); White Blood Cell Count 11.4 10^3/uL (4.8-10.8)
[2024-04-01 05:01] LABS: Blood Urea Nitrogen 28 mg/dl (9-20); Calcium 8.2 mg/dl (8.4-10.2); Carbon Dioxide 26 mmol/L (22-30); Chloride 99 mmol/L (98-107); Estimated Creatinine Clearance 102 ml/min; Glucose 170 mg/dl (70-99); Potassium 3.3 mmol/L (3.5-5.1); Sodium 134 mmol/L (135-145); eGFR > 60.00
[2024-04-01 05:23] LABS: Troponin I 0.025 ng/ml
[2024-04-01 05:33] LABS: TSH Reflex To Free T4 0.98 uIU/ml (0.47-4.68)
[2024-04-01 05:43] LABS: Iron 25 ug/dl (49-181)
[2024-04-01] MEDS: KCL 40 MEQ PO (05:48)
[2024-04-01 05:52] LABS: Percent Saturation 14 % (20-50); Total Iron Binding Capacity 176 ug/dl (261-462); Vitamin B12 996 pg/ml (239-931)
[2024-04-01 05:59] LABS: Urine Amorphous Seen; Urine Squamous Cell 16-20 /LPF (Few)
[2024-04-01 06:00] LABS: Urine Mucus Few
[2024-04-01 06:01] LABS: Urine Bacteria Moderate (Negative)
[2024-04-01 06:02] LABS: Urine Hyaline Cast 0-2 /LPF (0-2); Urine Red Blood Cell 21-25 /HPF (0-2)
--- NOTE | 2024-04-01 07:45 | CON.CAR ---
Addendum entered and electronically signed by Coral Young MD 04/01/24 11:56:
Patient is seen and evaluated personally. I agree with the note, plan of care and documentation as below
Briefly, 68-year-old gentleman, well-known to Dr. Rowell, with history of ascending aortic aneurysm s/p repair with resuspension of aortic valve, dilated cardiomyopathy with LVEF of 40% with recovered LVEF on recent echo at 55%, paroxysmal
atrial fibrillation status post A-fib ablation at [facility] on Eliquis, history of alcohol and substance abuse and hypertension who presented with recent fall likely mechanical with urinary tract infection and A-fib with RVR. Treatment of complex urinary
tract infection with systemic septicemia as per primary team. Patient may have multiple etiologies of sepsis including pneumonia and UTI. In the setting of septicemia/sepsis, A-fib with RVR is common. Patient is asymptomatic with adequate rate
control. Continue diltiazem drip. Continue Eliquis.
Recent outpatient monitoring shows wandering atrial pacemaker with multiple etiologies of atrial rhythms along with atrial fibrillation. Patient is initial EKG shows atypical atrial flutter.
Will obtain repeat echo on Wednesday once rates are improved..
Original Note:
Consultation
Consultation Request
Date/Time Consultation Requested: 04/01/24 0716
Date/Time Consultation Performed: 04/01/24 2545
Requesting Provider: Dr. Freire
Performing Provider: Hoa LIND for Dr. Young
Reason for Consultation: AFIB with RVR
Medical History
-
Chief Complaint: confusion
History of Present Illness:
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 Rowell) with ascending aortic aneurysm s/p hemiarch repair with resuspension of aortic valve, PVI, LAAL 10/24/21 ([facility]), dilated CM with EF 40-45% with post-op improvement to 50-55% on most recent echo, PAF on
Eliquis, hx ETOH and substance abuse per chart, and hypertension who is here for confusion noted by family. He tells me he slipped in the bathroom two nights ago when the lights were off and was too weak to get up. He has also had SOB, cough, and
chills. He is admitted for treatment of pneumonia. We are consulted for AFIB with RVR. He is on diltiazem drip. He is on O2 and is wheezing to assessment. He is in no distress at the time of my assessment. Of note, he was recently started on lasix
in the ER, but that is now held with ISAI.
Past Medical History
Past Medical History: Arrhythmias, CHF and HTN
Social History
Drug: Marijuana
Family History
Family History: CAD (dad [place])
Allergies / Home Medications
Allergy/AdvReac Type Severity Reaction Status Date / Time
Penicillins Allergy Unknown Unknown Verified 08/05/22 16:22
�Medication �Instructions �Recorded �Confirmed �Type
mirtazapine 30 mg tablet 45 mg PO HS Mental Health/Anxiety 02/23/16 04/01/24 History
apixaban 5 mg tablet (Eliquis) 5 mg PO BID Blood clot 07/26/18 04/01/24 History
prevention/tx
lorazepam 1 mg tablet 2 mg PO TID ANXIETY 07/26/18 04/01/24 History
carisoprodol 350 mg tablet 350 mg PO TID Muscle spasms 03/18/21 04/01/24 History
oxycodone-acetaminophen 5 mg-325 2 tab PO Q4H Pain 03/18/21 04/01/24 History
mg tablet
furosemide 20 mg tablet (Lasix) 20 mg PO DAILY #5 tabs 03/07/24 04/01/24 Rx
losartan 25 mg tablet 25 mg PO DAILY 04/01/24 04/01/24 History
metoprolol succinate 100 mg 100 mg PO DAILY 04/01/24 04/01/24 History
tablet,extended release 24 hr
ondansetron 8 mg disintegrating See Rx Instructions .Route .COMPLEX 04/01/24 04/01/24 History
tablet
Review of Systems
-
History Source: Patient and Other (and chart)
All other systems: Negative unless noted
Constitutional: Chills
Respiratory: Cough and Trouble Breathing
Neurological: Weakness and Other (confusion)
Physical Exam
Vital Signs
Temp Pulse Resp BP Pulse Ox
99.5 F 125 21 94/60 93
04/01/24 04:51 04/01/24 06:00 04/01/24 06:00 04/01/24 06:00 04/01/24 06:00
Lab Results
04/01/24 04:26
04/01/24 04:26
Troponin I 0.025 ng/ml 04/01/24 04:26
Physical Exam
General: Well Developed, Well Nourished and No Apparent Distress
HEENT: Normocephalic and Anicteric
Respiratory: Other (on O2 by NC)
Cardiac: Irregular Rhythm
Musculoskeletal: No Edema
Skin: Warm and Dry
Neuro: Awake and Alert
Psych: Calm
Impression / Plan
-
Sepsis:
-temp as high as 102, now improved
-getting ABX
-PNA on imaging, also concern for UTI- cx are pending
-management per primary team
AFIB with RVR: paroxysmal
-fast in setting of acute illness. Treat underlying illness as per medicine team.
-patient not symptomatic
-continue Eliquis for OAC
-he is currently on diltiazem drip for rate control and BP is stable- continue this for now. This requires intensive monitoring. BP was on lower end, but has normalized.
-on BB as well
-recent OP monitor shows PAF. Per chart hx PVI/LAAL 2021 when he had cardiac surgery.
Dilated CM:
-improved on most recent echo EF 50-55%
-recently started on Lasix, but does not appear volume overloaded at this time, to my assessment- monitor volume as he is appropriately getting fluids for sepsis
Ascending aortic aneurysm s/p repair with resuspension of AV 2021, HUP
Hypokalemia:
-replaced- monitor
Data Reviewed
-
EKG: Tracing Personally Visualized and interpreted
Radiology: Report Reviewed by me (Deformity of the posterolateral right 10th rib, compatible with old healed fracture. No evidence for acute fracture. Focal parenchymal airspace opacity within the right lower lung, which is suspicious for
pneumonia. Please correlate clinically.)
CT Scan: Report Reviewed by me (No evidence of acute intracranial abnormality.)
Medical Tests (Nuc Med, Echo etc): Report Reviewed by me (Echo 2021: EF 50-55% basal inferior hypokinesis, basal inferolateral changes, severe AR) and Other (cath 2021, no obstructive CAD)
Labs: Labs Reviewed by me
[2024-04-01] MEDS: ELIQUIS 5 MG PO ×2 (08:29→19:37)
[2024-04-01] MEDS: MUCINEX 1200 MG PO ×2 (08:29→19:37)
[2024-04-01] MEDS: TOPROL XL 100 MG PO (08:29)
[2024-04-01] MEDS: ATIVAN 1 MG PO ×3 (08:49→20:41)
[2024-04-01 10:26] LABS: Glycohemoglobin (HgbA1c) 6.1 % (4.0-5.6)
[2024-04-01 12:39] LABS: Troponin I 0.015 ng/ml
[2024-04-01] MEDS: NSS 1000 IV (15:17)
[2024-04-01] MEDS: SOMA 350 MG PO (15:31)
--- NOTE | 2024-04-01 16:46 | W.PN.HOSP.TC ---
Today's Communication/Plan
-
- Cont IV ceftriaxone and IV doxycycline.
-blood/urine/sputum cultures pending
-WBC improving to 11.4 from 12.1 today
-continue IVF NS
-contiue Dilt gtt and metoprolol oral restarted
- Hold Lasix as noted above, for now, and continue gentle IV diuresis
-Cardiology consultation
-echocardiogram pending
Assessment / Plan
Assessment / Plan
Patient is a 68y M with PMH significant for history of ascending aortic aneurysm s/p repair with resuspension of aortic valve, dilated cardiomyopathy with LVEF of 40% with recovered LVEF on recent echo at 55%, paroxysmal atrial fibrillation status
post A-fib ablation at [facility] on Eliquis, history of alcohol (not for quite some time) and substance abuse (takes OP cyclobenzaprine, benzo TID scheduled, pain meds prn) and hypertension who presents to ED for evaluation of confusion / recent falls
and cough.
RLL Pneumonia, concern for bacterial CAP, gram negative
#Sepsis secondary to the above
#Acute TME secondary to the above, improving but not baseline
- Cont IV ceftriaxone and IV doxycycline.
-blood/urine/sputum cultures pending
-WBC improving to 11.4 from 12.1 today
- Supportive care including mucolytics, O2 support
- Follow for clinical improvement.
- Confusion appears to be improving as well - follow for continued improvement / other changes.
-continue IVF NS
Fall at Home
- Patient with unwitnessed fall last PM ( into Wednesday).
- Reports pain in the R lower chest - no overlying ecchymosis / etc.
- Small abrasion to the L wrist and L chest / upper abdomen.
- CT head and CT C-spine unremarkable.
- PT / OT evaluations.
- Follow for improvement in gait / stability with treatment of sepsis / pneumonia.
ISAI
- SCr = 1.2 compared to baseline of 0.8.>> improved to baseline 0.9 today with IV hydration
- Likely secondary to sepsis as noted above.
- Hold diuretic acutely (this was only added recently).
- Hold ARB.
- IVF support and follow for improvement.
Paroxysmal A-Fib with Rapid Ventricular Response
-he remains on IV diltiazem gtt, continue IV Cardizem drip per Cardiology recommendations, and titrate- he is requiring max dose of drip at this time
- continue Metoprolol PO, titrate cardizem drip as needed for rate control.
- Continue / resume usual metoprolol.
- Continue Eliquis for stroke risk reduction.
- Cardiology evaluation.
Dilated Cardiomyopathy
- Most recent Echo showed improved EF.
- Hold Lasix as noted above, for now, and continue gentle IV diuresis
- Follow I/Os, daily weights
- Cardiology consultation appreciated- echocardiogram ordered
Anemia of Chronic Disease
-Hgb 9.7 today, no active bleeding
-continue to trend, repeat CBC in am
- Check iron studies, B12
Chronic Pain Syndrome
Chronic Opioid Dependence
Chronic BZD Dependence
Polypharmacy
- Patient on multiple sedating meds including opioids, BZDs, muscle relaxants, etc.
- Continue oxycodone PRN.
- Decrease lorazepam to 1mg TID and hold for sedation.
- Added home med carisoprodol PRN
- Follow-up with outpatient pain management / PCP regarding adjustments in his chronic med regimen.
DVT Prophylaxis: On Eliquis
Code Status: Full
Anticipated Discharge: > 48 hours
Subjective/Interval History
-
Date of Service: April 01, 2024
The patient is still confused from baseline, more alert and awake than when he first arrived. Daughter is in the room with him. He denies CP, no SOB, he is coughing productive sputum. No n/v/d.
Objective Data
-
Labs:
Laboratory Results
02/08/25
04:26
Sodium 134 L
Potassium 3.3 L
Chloride 99
Carbon Dioxide 26
BUN 28 H
Creatinine 0.9
Glucose 170 H
Calcium 8.2 L
Vital Signs:
Vital Signs
Temp Pulse Resp BP Pulse Ox
98.4 F 75 16 94/66 96
04/01/24 12:43 04/01/24 16:00 04/01/24 16:00 04/01/24 16:00 04/01/24 16:00
I&O
03/31/24 04/01/24 04/02/24
06:59 06:59 06:59
Intake Total 960 / 960
Balance 960 / 960
Review of Systems
-
All other systems: Reviewed and negative (Per Subjective)
Physical Exam
-
General: Well Nourished, Conversant and Obese
HEENT: Normocephalic, Atraumatic and Other (dry mucous membranes)
Respiratory: Wheezes (bilateral mid and lower lung hinojosa)
Cardiac: Regular Rhythm and Irregular Rhythm
GI: Soft, Nontender and Nondistended
Musculoskeletal: No Clubbing, No Cyanosis and No Edema
Skin: Warm and Dry
Neuro: Awake, Alert and Oriented
Psych: Calm
Data Reviewed
-
CT Scan: Report Reviewed by me
Labs: Labs Reviewed by me, Discussed with Patient and Discussed with Family
[2024-04-01 17:54] LABS: Troponin I < 0.012 ng/ml
--- NOTE | 2024-04-01 19:03 | PTCARENOTE ---
Received patient on transfer from ED via bed at approximately 18:20 with Cardizem infusing at 15mg/hr; patient able to slide over onto new bed himself. Per RN report, patient had EKG prior to transfer and converted to ST. HR currently 95-108. Lungs
coarse with exp wheeze, denies SOB; POx 91-93% on RA. Patient denies CP or SOB. Ox2-3; bed alarm initiated for patient safety. called to order dinner and was told that someone already ordered. Report given to oncoming shift.
[2024-04-01] MEDS: REMERON 30 MG PO (20:40)
[2024-04-01] MEDS: REMERON 15 MG PO (20:40)
--- NOTE | 2024-04-01 23:24 | PTCARENOTE ---
Received pt from jaun RN. Pt AAOx3, forgetful at times, rings appropriately. NSR/ST with PAC/PVC on monitor. HR 90-110 when resting. HR up to 140s when standing. Cardizem gtt@15ml/hr through R AC. Lungs diminished bilaterally with expiratory
wheeze, R worse than L. SaO2 91% on RA. NS@80ml/hr through R FA. Call avila and belongings within reach. Care ongoing.
[2024-04-02] VITALS (13 sets, daily range): BP systolic 86–152; BP diastolic 49–99; BMI 27.0
[2024-04-02] MEDS: CARDIZEM 125 IV (01:25)
[2024-04-02] MEDS: PERCOCET 5/325 2 TABLET PO ×3 (02:59→17:52)
[2024-04-02 05:01] LABS: % Basophils 0.3 % (0-2); % Eosinophils 0.9 % (0-6); % Immature Granulocytes 0.5 % (0-0.5); % Lymphocytes 10.2 % (20.5-51.1); % Monocytes 10.5 % (1.7-9.3); % Neutrophils 77.6 % (42.2-75.2); Absolute Eosinophils 0.1 10^3/uL (0-0.7); Absolute Immature Granulocytes 0.1 10^3/uL (0-0.05); Absolute Lymphocytes 1.2 10^3/uL (1.2-3.4); Absolute Monocytes 1.2 10^3/uL (0.1-0.6); Hematocrit 28.1 % (39.0-52.0); Hemoglobin 9.3 g/dL (13.0-18.0); Mean Corp Hgb Conc. 33.1 g/dL (33.0-37.0); Mean Corpuscular Hgb 28.7 pg (27.0-31.0); Mean Corpuscular Volume 86.7 fL (80.0-94.0); Mean Platelet Volume 9.5 fL (7.4-10.4); Nucleated Red Blood Cells % 0 % (-); Platelet Count 283 10^3/uL (130-400); Red Blood Cell Count 3.24 10^6/uL (4.70-6.10); Red Cell Dist. Width 13.2 % (11.5-14.5); White Blood Cell Count 11.5 10^3/uL (4.8-10.8)
[2024-04-02] MEDS: ROCEPHIN 1000 MG IV (05:02)
[2024-04-02] MEDS: STERILE WATER FOR INJECTION 10 ML IV (05:03)
[2024-04-02] MEDS: FLUSH (NSS) 1 FLUSH IV ×2 (05:03)
[2024-04-02 05:26] LABS: Blood Urea Nitrogen 14 mg/dl (9-20); Carbon Dioxide 25 mmol/L (22-30); Chloride 103 mmol/L (98-107); Estimated Creatinine Clearance 114 ml/min; Glucose 111 mg/dl (70-99); Potassium 3.5 mmol/L (3.5-5.1); Sodium 135 mmol/L (135-145); eGFR > 60.00
--- NOTE | 2024-04-02 05:42 | PTCARENOTE ---
Addendum entered by Patria Baird RN 04/02/24 05:52:
This RN went through patient's belonging bags with patient and no other pills or medications were found.
Original Note:
This RN walked into patients room and patient asked if there were any pills on the floor as he thinks he spilled his mucinex from home. This RN picked up 3 tablets, ran them through [facility] drug ID and found them to be percocet. This RN called
pharmacy, filled out a controlled home medication form, and walked the tablets down to pharmacy to be kept until patient d/c.
[2024-04-02] MEDS: ATIVAN 1 MG PO ×3 (07:50→21:40)
[2024-04-02] MEDS: VIBRAMYCIN 100 MG PO ×2 (07:50→19:08)
[2024-04-02] MEDS: ELIQUIS 5 MG PO ×2 (07:50→19:08)
[2024-04-02] MEDS: TOPROL XL 100 MG PO (07:50)
[2024-04-02] MEDS: MUCINEX 1200 MG PO ×2 (07:50→19:08)
--- NOTE | 2024-04-02 09:04 | W.PN.HOSP.TC ---
Today's Communication/Plan
-
Patient more alert and less confused. He can use bathroom with assistance.
Assessment / Plan
Assessment / Plan
Historical summary:
68y M with PMH significant for history of ascending aortic aneurysm s/p repair with resuspension of aortic valve, dilated cardiomyopathy with LVEF of 40% with recovered LVEF on recent echo at 55%, paroxysmal atrial fibrillation status post A-fib
ablation at [facility] on Eliquis, history of alcohol (not for quite some time) and substance abuse (takes OP cyclobenzaprine, benzo TID scheduled, pain meds prn) and hypertension who presents to ED for evaluation of confusion / recent falls and cough.
1. RLL Pneumonia, with probable bacterial CAP, (gram negative)
Sepsis secondary to the above
Acute TME secondary to the above, improving but not baseline
- Cont IV ceftriaxone and IV doxycycline.
-blood/urine/sputum cultures pending
-WBC 12.1 --> 11.4 --> 11.5
- Supportive care including mucolytics, O2 support
- Follow for clinical improvement.
- Confusion appears to be improving as well - follow for continued improvement / other changes.
- continue IVF NS, BP still soft
2. Fall at Home - Patient with unwitnessed fall last PM ( into Wednesday).
- Reported pain in the R lower chest - but there was no overlying ecchymosis / etc.
- Small abrasion to the L wrist and L chest / upper abdomen.
- CT head and CT C-spine unremarkable.
- PT / OT evaluations.
- Follow for improvement in gait / stability with treatment of sepsis / pneumonia.
4. ISAI - improving
- SCr = 1.2 compared to baseline of 0.8.>> improved to baseline 0.8 today with IV hydration
- Likely secondary to sepsis as noted above.
- Hold diuretic acutely
- Hold ARB.
- IVF support and follow for improvement.
5. Paroxysmal A-Fib with Rapid Ventricular Response - rate controlled
-he remains on IV diltiazem gtt, continue IV Cardizem drip per Cardiology recommendations, and titrate- he is requiring max dose of drip at this time
- continue Metoprolol PO, titrate cardizem drip as needed for rate control.
- Continue Eliquis for stroke risk reduction.
- Cardiology evaluation appreciated
6. Dilated Cardiomyopathy - Most recent Echo showed improved EF.
- Hold Lasix as noted above, for now, and continue gentle IV fluids
- Follow I/Os, daily weights
- Cardiology consultation appreciated- echocardiogram ordered
7. Anemia of Chronic Disease - chronic issue
-Hgb 9.3 today, no active bleeding
-continue to trend, repeat CBC in am
- Check iron studies, B12
8. Chronic Pain Syndrome with Chronic Opioid Dependence and Chronic BZD Dependence leading to Polypharmacy
- Patient on multiple sedating meds including opioids, BZDs, muscle relaxants, etc.
- Continue oxycodone PRN.
- Decreased lorazepam to 1mg TID and hold for sedation.
- Added home med carisoprodol PRN
- Follow-up with outpatient pain management / PCP regarding adjustments in his chronic med regimen.
9. Low K, 3.5 today
Check daily
Replete as needed.
DVT Prophylaxis: On Eliquis
Code Status: Full
Anticipated Discharge: > 48 hours
Subjective/Interval History
-
Date of Service: April 02, 2024
States he feels better and wants to be allowed to use regular toilet.
Objective Data
-
Labs:
Laboratory Results
04/02/24
04:16
WBC 11.5 H
Hgb 9.3 L
Hct 28.1 L
Plt Count 283
Sodium 135
Potassium 3.5
Chloride 103
Carbon Dioxide 25
BUN 14
Creatinine 0.8
Glucose 111 H
Calcium 8.0 L
Vital Signs:
Vital Signs
Temp Pulse Resp BP Pulse Ox
97.7 F 83 25 91/50 95
04/02/24 08:00 04/02/24 07:50 04/02/24 06:01 04/02/24 07:50 04/02/24 08:12
I&O
04/01/24 04/02/24 04/03/24
06:59 06:59 06:59
Intake Total 2820 / 2820
Output Total 200 / 200 300 / 300
Balance 2620 / 2620 -300 / -300
Review of Systems
-
History Source: Patient
All other systems: Reviewed and negative
Constitutional: Reports Fatigue
Abdomen/GI: Reports Diarrhea
Physical Exam
-
General: Well Developed, Well Nourished, No Apparent Distress and Comfortable
HEENT: Nose Appears Normal and Ears Appear Normal
Respiratory: Clear to Auscultation and Decreased Breath Sounds
Cardiac: Regular Rhythm and S1/S2
GI: Soft, Nontender and Nondistended
Musculoskeletal: No Clubbing, No Cyanosis, Edema, Right Lower Extrem and Edema, Left Lower Extrem
Skin: Warm and Dry
Neuro: Awake, Alert and Oriented
Psych: Calm
Data Reviewed
-
Labs: Labs Reviewed by me
[2024-04-02] MEDS: KLOR-CON 20 MEQ PO (09:42)
--- NOTE | 2024-04-02 09:48 | PTCARENOTE ---
Addendum entered by Herminia Gordillo RN 04/02/24 09:52:
Cardizem decreased to 5mg/hr as per order; HR 79. Lungs coarse b/l with exp wheeze t/o; occasional moist, harsh productive cough of leiva sputum. Received patient on 4L n/c; able to wean to RA with current POx 92-93%. See worklist for full assessment
and vital signs; see MAR for med administration.
Original Note:
Assumed care of patient from water filtration technician RN with cardizem infusing at 10mg/hr. HR 80s-low 100s, SR/ST with BBB. He did have a brief episode of bigeminy when eating breakfast; asymptomatic. K+ 3.[address] Peters on unit and made aware;
klor-con 20meq ordered and given. Patient able to go to BR with assistance per Dr Peters. HR currently 79.
--- NOTE | 2024-04-02 10:04 | W.PN.CD ---
Today's Communication / Plan
-
-Digoxin for better rate control.
-Replace potassium to keep more than 4.0
Impression / Plan
-
Sepsis:
-temp as high as 102, now improved
-getting ABX
-PNA on imaging, also concern for UTI- cx are pending
-management per primary team
AFIB with RVR: paroxysmal
-fast in setting of acute illness. Treat underlying illness as per medicine team.
-Expected to improve diltiazem requirement - wean off.
-Transiently will add digoxin to help with rate control while recovering from infection. Normal K and Cr.
-patient not symptomatic
-continue Eliquis for OAC
-he is currently on diltiazem drip for rate control and BP is stable- continue this for now. This requires intensive monitoring. BP was on lower end, but has normalized.
-on BB as well
-recent OP monitor shows PAF. Per chart hx PVI/LAAL 2021 when he had cardiac surgery.
Dilated CM:
-improved on most recent echo EF 50-55%
-recently started on Lasix, but does not appear volume overloaded at this time, to my assessment- monitor volume as he is appropriately getting fluids for sepsis
Ascending aortic aneurysm s/p repair with resuspension of AV 2021, [facility]
Hypokalemia:
-replaced- monitor
Physical Exam
Vital Signs/Labs
Vital Signs
Temp Pulse Resp BP Pulse Ox
97.7 F 83 25 91/50 95
04/02/24 08:00 04/02/24 07:50 04/02/24 06:01 04/02/24 07:50 04/02/24 08:12
04/01/24 04/02/24 04/03/24
06:59 06:59 06:59
Actual Weight 107.728 kg 105.9 kg
04/02/24 04:16
04/02/24 04:16
Magnesium 2.0 mg/dl (1.6-2.3) 04/02/24 04:16
LAB Results
03/31/24 04/01/24 04/01/24
23:38 04:26 11:30
Troponin I 0.033 0.025 0.015 D
04/01/24
17:23
Troponin I < 0.012
Physical Exam
Constitutional: No acute distress and Comfortable
EENT: Anicteric and Moist mucous membranes
Cardiovascular: Rhythm & rate is regular, Pedal edema is absent, JVD pressure is normal and Systolic murmur absent
Respiratory: Respiratory effort normal and Lungs clear to auscul.
GI: Soft, Normal bowel sounds and Distention present
Neuro/Psych: Alert, Oriented, AO x 3 and Motor deficits absent
Data Reviewed
-
Date of Service: April 02, 2024
Medical Decision Making: Reviewed Test Results, Test Interpretation and Review of Case with other Provider
EKG: Tracing Personally Visualized and interpreted
Echo: Report Reviewed by me
Labs: Labs Reviewed by me
Old Records: Reviewed
[2024-04-02] MEDS: LANOXIN 125 MCG IV (10:27)
--- NOTE | 2024-04-02 10:51 | PTCARENOTE ---
Patient ambulated to BR with assistance from staff and use of RW. Maintained steady gait but needed reminders to go slow and wait for staff assistance. He thought it was 6pm when looking at the clock. Assisted back to chair; chair alarm initiated.
Stat dose of digoxin given as per Dr Young. HR maintained in the 80s with ambulation; SR with PVCs. Dr Young on unit to see patient and updated with patient's rhythm and episode of bigeminy with breakfast. Reviewed K+ level and klor-con that was
given. He stated he will d/c cardizem drip; ordered more potassium. See updated orders and MAR for med administration.
[2024-04-02] MEDS: KCL 40 MEQ PO (11:16)
--- NOTE | 2024-04-02 12:33 | PTCARENOTE ---
When [facility] was assisting patient back to bed from the chair she noted a white pill on the floor. Pill taken to pharmacy by this RN and given to pharmacist Faizan Barahona who stated it was a percocet. He added to bag of 3 other percocets that were found on
package delivery room service runner by previous RN. This RN made nursing [employer] supervisor Alexa aware; she instructed that security be made aware. This RN spoke with Alejandro from security who stated he will be up to speak with patient. Patient stated to this RN that he has a
prescription for this medication. Informed him that [facility] [employer] supervisor requested security speak with him.
--- NOTE | 2024-04-02 12:42 | PTCARENOTE ---
2 security guards up to speak with patient and search belongings; no further pills found.
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
[2024-04-02] MEDS: PROTONIX 40 MG PO (17:52)
[2024-04-02] MEDS: REMERON 15 MG PO (21:40)
[2024-04-02] MEDS: REMERON 30 MG PO (21:40)
[2024-04-03] VITALS (14 sets, daily range): BP systolic 107–146; BP diastolic 66–98; PULSE 101; O2SAT 94; BMI 26.8
--- NOTE | 2024-04-03 01:54 | PTCARENOTE ---
Pt frequently disoriented when waking in the middle of the night, stating he 'woke up and thought he was in a senior care' and 'had no idea what was going on'. Multiple attempts made to get OOB to BR without pressing call avila. Bed alarm on. Pt instructed
to call before getting OOB.
[2024-04-03 04:48] LABS: Hematocrit 27.9 % (39.0-52.0); Hemoglobin 9.6 g/dL (13.0-18.0); Mean Corp Hgb Conc. 34.4 g/dL (33.0-37.0); Mean Corpuscular Hgb 29.4 pg (27.0-31.0); Mean Corpuscular Volume 85.6 fL (80.0-94.0); Mean Platelet Volume 9.7 fL (7.4-10.4); Platelet Count 345 10^3/uL (130-400); Red Blood Cell Count 3.26 10^6/uL (4.70-6.10); Red Cell Dist. Width 13.2 % (11.5-14.5); White Blood Cell Count 12.5 10^3/uL (4.8-10.8)
[2024-04-03 05:08] LABS: Blood Urea Nitrogen 11 mg/dl (9-20); Calcium 8.3 mg/dl (8.4-10.2); Carbon Dioxide 25 mmol/L (22-30); Chloride 103 mmol/L (98-107); Estimated Creatinine Clearance > 125 ml/min; Glucose 105 mg/dl (70-99); Potassium 3.8 mmol/L (3.5-5.1); Sodium 136 mmol/L (135-145); eGFR > 60.00
[2024-04-03] MEDS: ROCEPHIN 1000 MG IV (05:13)
[2024-04-03] MEDS: STERILE WATER FOR INJECTION 10 ML IV (05:14)
[2024-04-03] MEDS: FLUSH (NSS) 1 FLUSH IV ×2 (05:14)
[2024-04-03] MEDS: LOPRESSOR 5 MG IV (05:47)
[2024-04-03] MEDS: TOPROL XL 100 MG PO (05:48)
[2024-04-03] MEDS: PERCOCET 5/325 2 TABLET PO ×2 (05:55→16:17)
--- NOTE | 2024-04-03 06:23 | PTCARENOTE ---
Pt HR noted to be in 120s at rest, 150s when standing. Pt SOB at rest and on exertion, SaO2 95% on 2LNC. Pt instructed to lie down in bed. ALARM SIGNAL OPERATOR notified. One time order of IV lopressor 5mg given. AM dose of PO toprol XL given early per ALARM SIGNAL OPERATOR.
[2024-04-03] MEDS: ELIQUIS 5 MG PO ×2 (08:36→20:08)
[2024-04-03] MEDS: MUCINEX 1200 MG PO ×2 (08:36→20:08)
[2024-04-03] MEDS: PROTONIX 40 MG PO (08:36)
[2024-04-03] MEDS: VIBRAMYCIN 100 MG PO ×2 (08:36→20:08)
[2024-04-03] MEDS: ATIVAN 1 MG PO ×3 (08:36→22:23)
--- NOTE | 2024-04-03 08:49 | PTCARENOTE ---
Assumed care of patient this morning. He is aaox3. He remembers last night's football game. Neuro check within normal limits, see flowsheet. Pt reports his pain is better this morning after Percocet, see MAR. He has no complaints. On monitor,
currently he appears to be in SR with PVCs. HR controlled in 90s while patient is laying in bed. While moving around in bed, HR jumping into 110s. Pt tachycardic early this AM and was given IV Lopressor and his morning Metoprolol PO early by
nightshift RN. BP stable. Assessment, care and VS as charted.
--- NOTE | 2024-04-03 13:29 | W.PN.CD ---
Addendum entered and electronically signed by Dmitriy Carranza MD 04/03/24 13:52:
If dofetilide is not tolerated we will start amiodarone likely as a bridge to ablation
Original Note:
Today's Communication / Plan
-
Start dofetilide
Watch tele carefully
Impression / Plan
-
Suspected infection/sepsis
- Per hospitalist
Tachycardia
- Some is likely PAF
- Some is likely PAT
- Known hx of PAF
- At time of surgery ([facility] 2021) he had PVI/LAAL
- Out patient monitor 7d 03/09-: 161 episodes of mostly AT but cannot rule out some AFib, longest 8.5 hrs. Rates 105-148 bpm
- On Eliquis
- In sinus in the office 03/23/2024 he had a IVCD with QRS was 144 with a QTc of 420 ms
- We will try Dofetilide and see if we can suppress his AT
EKG
- IVCD, will monitor tele and ekgs
- Will be easier to accurately measure QTc when clearly in NSR
Dilated CM:
-improved on most recent echo EF 50-55%
-recently started on Lasix, but does not appear volume overloaded at this time, to my assessment- monitor volume as he is appropriately getting fluids for sepsis
Ascending aortic aneurysm s/p repair with resuspension of AV
Zofran
- Listed in outpt meds
- Will need to stay off that med as much as possible when on Dofetilide
Subjective:
No CP
Physical Exam
Vital Signs/Labs
Vital Signs
Temp Pulse Resp BP Pulse Ox
98.0 F 90 16 107/66 93
04/03/24 11:35 04/03/24 11:04 04/03/24 11:04 04/03/24 11:04 04/03/24 11:04
04/02/24 04/03/24 04/04/24
06:59 06:59 06:59
Actual Weight 105.9 kg 105.3 kg
04/03/24 03:53
04/03/24 03:53
Magnesium 2.0 mg/dl (1.6-2.3) 04/02/24 04:16
LAB Results
03/31/24 04/01/24 04/01/24
23:38 04:26 11:30
Troponin I 0.033 0.025 0.015 D
04/01/24
17:23
Troponin I < 0.012
Physical Exam
Constitutional: No acute distress
EENT: Anicteric
Cardiovascular: Rhythm & rate is regular and Pedal edema is absent
Respiratory: Respiratory effort normal
Data Reviewed
-
Date of Service: April 03, 2024
--- NOTE | 2024-04-03 13:47 | W.CARD.TIKOS ---
Initiate Tikosyn
-
I verify that the patient has not taken any verapamil (Isoptin/Calan), ketoconazole (Nizoral), cimetidine (Tagamet), trimethoprim (Trimpex), trimethoprim/sulfamethoxazole (Bactrim), megesterol (Megace), prochlorperazine (Compazine),
hydrochlorothiazide (HCTZ), dolutegravir (Tivicay) or any Class I or Class III anti-arrhythmic within the last three days
AND
I verify that the patient has not taken amiodarone within the last THREE months, or that the patient's amiodarone plasma concentration is <0.3 mcg/mL.
Creatinine 0.7 mg/dL (0.7-1.3) 04/03/24 03:53
Estimated Creat Clear > 125 ml/min 04/03/24 03:53
Does patient have a Ventricular Conduction Abnormality: Yes
Baseline QTc (in msec): 511
QTc interval is greater than 440msec without conduction abnormality OR greater than 500msec with a conduction abnormality, but acceptable to proceed per Cardiology attending.
Discussed with Dr. Carranza of EP- would like dofetilide started
Reason for Administration with Prolonged QTc: Bundle Branch Block (IVCD noted)
Ordering Physician: Dmitriy Carranza
--- NOTE | 2024-04-03 14:25 | W.PN.HOSP.TC ---
Addendum entered and electronically signed by Maxime Washington MD 04/03/24 18:02:
1 small episode of bright red blood per rectum after patient was straining while having a bowel movement. Appears constipation with previous history of hemorrhoids. Start laxatives. If continues to have frequent bloody bowel movement then will
get GI evaluation. Repeat hemoglobin improved from prior, 10.2
Original Note:
Today's Communication/Plan
-
Monitor vital signs see plan
Tikosyn per cardiology
Monitor QTc
Check ferritin, if low then will start IV iron
Continue abx
Assessment / Plan
Assessment / Plan
Historical summary:
68y M with PMH significant for history of ascending aortic aneurysm s/p repair with resuspension of aortic valve, dilated cardiomyopathy with LVEF of 40% with recovered LVEF on recent echo at 55%, paroxysmal atrial fibrillation status post A-fib
ablation at [facility] on Eliquis, history of alcohol (not for quite some time) and substance abuse (takes OP cyclobenzaprine, benzo TID scheduled, pain meds prn) and hypertension who presents to ED for evaluation of confusion / recent falls and cough.
RLL Pneumonia, with probable bacterial CAP, (gram negative)
Sepsis secondary to the above
Acute TME secondary to the above, improving but not baseline
continue with ceftriaxone and doxycycline
bcx NGTD
- Confusion appears to be improving as well - follow for continued improvement / other changes.
Suspect TME likely secondary to pneumonia
Fall at Home - Patient with unwitnessed fall last PM ( into Wednesday).
- Reported pain in the R lower chest - but there was no overlying ecchymosis / etc.
- Small abrasion to the L wrist and L chest / upper abdomen.
- CT head and CT C-spine unremarkable.
- PT / OT evaluations.
- Follow for improvement in gait / stability with treatment of sepsis / pneumonia.
ISAI - improving
- SCr = 1.2 compared to baseline of 0.8. Now improving
- Likely secondary to sepsis as noted above.
- Hold diuretic acutely
- Hold ARB.
Paroxysmal A-Fib with Rapid Ventricular Response - rate controlled
Was initially started on Cardizem
Now on digoxin
Cardiology planning to start Tikosyn 04/03. If does not tolerate then likely will be put on amiodarone with possible ablation
- Continue Eliquis for stroke risk reduction.
Cardiology following
Dilated Cardiomyopathy - Most recent Echo showed improved EF.
- Hold Lasix as noted above, for now
- Follow I/Os, daily weights
Cardiology following, echo 04/03
Anemia of Chronic Disease - chronic issue
No active bleeding, continue to monitor
low iron but no one checked ferritin, check ferritin and if low then can give IV iron
Chronic Pain Syndrome with Chronic Opioid Dependence and Chronic BZD Dependence leading to Polypharmacy
- Patient on multiple sedating meds including opioids, BZDs, muscle relaxants, etc.
- Continue oxycodone PRN.
- Decreased lorazepam to 1mg TID and hold for sedation.
- Added home med carisoprodol PRN
- Follow-up with outpatient pain management / PCP regarding adjustments in his chronic med regimen.
DVT Prophylaxis: On Eliquis
Code Status: Full
General: Well Developed, Well Nourished, No Apparent Distress and Comfortable
HEENT: Nose Appears Normal and Ears Appear Normal
Respiratory: Clear to Auscultation and Decreased Breath Sounds
Cardiac: Regular Rhythm and S1/S2
GI: Soft, Nontender and Nondistended
Musculoskeletal: Edema, Right Lower Extrem and Edema, Left Lower Extrem
Neuro: Awake, Alert and Oriented
Psych: Calm
I spent a total of 52 minutes with the patient or on the floor. More than 50% of this time involved counseling and coordination of care.
Anticipated Discharge: > 48 hours
Subjective/Interval History
-
Date of Service: April 03, 2024
Denies nausea
Objective Data
-
Labs:
Laboratory Results
04/03/24
03:53
WBC 12.5 H
Hgb 9.6 L
Hct 27.9 L
Plt Count 345 D
Sodium 136
Potassium 3.8
Chloride 103
Carbon Dioxide 25
BUN 11
Creatinine 0.7
Glucose 105 H
Calcium 8.3 L
Vital Signs:
Vital Signs
Temp Pulse Resp BP Pulse Ox
98.0 F 102 16 131/80 95
04/03/24 11:35 04/03/24 14:00 04/03/24 14:00 04/03/24 14:00 04/03/24 14:00
I&O
04/02/24 04/03/24 04/04/24
06:59 06:59 06:59
Intake Total 2820 / 2820 480 / 480
Output Total 200 / 200 550 / 550
Balance 2620 / 2620 -70 / -70
--- NOTE | 2024-04-03 14:27 | PTCARENOTE ---
Patient's daughter at bedside. She wanted to me relay that the patient has been having stomach issues (epigastric pain and bloating) for a while now and is insisting the issues with his heart are related due to them starting around the same time.
Relayed to and in a group TT.
--- NOTE | 2024-04-03 14:52 | CM ---
Patient with Dx, PNA, fall at home, ISAI, PAF, chronic anemia. Room air. Receiving IV Abx. Plan to initiate Tikosyn. PT/OT recommend HH.
CM Consult: follow up re; obtaining Tikosyn (dofetilide) after discharge.
Spoke with Sultana Arthur CM IVU: they usually ask MD to send 3 day script to our pharmacy to ensure patient will have supply in case patient's regular pharmacy does not have the med in stock at time of d/c ---> Hoa Rodriguez notified of this.
Spoke with pharmacist, YAIR Kohli; cost $15 for 30 day supply, right now they have 400 tabs in stock ---> Hoa Rodriguez notified of this.
Spoke with patient's Jolanta; says she has severe COPD and is immunocompromised and unable to visit patient here at hospital. reports that patient falls frequently at home and has had several falls recently. She thinks VN for PT/OT
would be best instead of him resuming outpatient PT through [employer].
Plan follow up with patient when closer to d/c re; VN vs outpatient therapy.
Plan follow up if script for Tikosyn sent to our pharmacy for 3 day supply.
--- NOTE | 2024-04-03 15:47 | PTCARENOTE ---
Pt to start Tikosyn tonight. Per protocol patient needs a different level of care. Orders obtained to transfer to IVU.
--- NOTE | 2024-04-03 15:59 | PTCARENOTE ---
Pt had a large, hard BM in toilet. Pt had landen blood in toilet. Pt reports history of hemorrhoids and was straining during BM. Pt denies any abdominal pain. TT to . Orders for H&H and stool softeners.
[2024-04-03] MEDS: MIRALAX 17 GRAMS PO (16:08)
[2024-04-03 16:34] LABS: Hematocrit 30.6 % (39.0-52.0); Hemoglobin 10.2 g/dL (13.0-18.0)
--- NOTE | 2024-04-03 20:12 | PTCARENOTE ---
Rec'd pt from previous RN. Orders in to tx pt to IVU. Report called to IVU RN. 20:00 meds taken whole without complication, except for tikosyn which must be given by IVU RN. Pt ambulatory in room with rw with some tachycardia to 120s on exertion,
which resolves to 90s upon sitting. VSS at this time, 97% on RA. Pt AAOx3, neuro check as documented. Denies complaints at this time. Call avila within reach.
--- NOTE | 2024-04-03 20:39 | PTCARENOTE ---
Pt transferred to IVU via wheelchair.
[2024-04-03] MEDS: TIKOSYN 500 MCG PO (21:10)
--- NOTE | 2024-04-03 21:52 | PTCARENOTE ---
Patient received from IMU as transfer for Tikosyn loading around 2029. 2000 ECG completed per order upon transfer from IMU. Discussed with patient initial Tikosyn dose and two hour ECG following administration. Patient alert to self and place. Call
avila within reach. Bed alarm armed. Patient forgetful and confused at times, hard of hearing but does not use hearing aids. Patient oriented to room and unit. Patient ambulated from bed to bathroom, x1 assist with RW. Sinus rhythm on the monitor
with occasional PACs. Patient voices no complaints at this time. Care ongoing.
[2024-04-03] MEDS: REMERON 15 MG PO (22:23)
[2024-04-03] MEDS: REMERON 30 MG PO (22:23)
[2024-04-04] VITALS (8 sets, daily range): BP systolic 116–149; BP diastolic 74–87; BMI 26.7
[2024-04-04 03:44] LABS: % Basophils 0.3 % (0-2); % Eosinophils 1.3 % (0-6); % Immature Granulocytes 0.6 % (0-0.5); % Lymphocytes 11.8 % (20.5-51.1); % Monocytes 7.5 % (1.7-9.3); % Neutrophils 78.5 % (42.2-75.2); Absolute Eosinophils 0.2 10^3/uL (0-0.7); Absolute Immature Granulocytes 0.1 10^3/uL (0-0.05); Absolute Lymphocytes 1.5 10^3/uL (1.2-3.4); Absolute Neutrophils 10.1 10^3/uL (1.4-6.5); Hematocrit 30.9 % (39.0-52.0); Hemoglobin 10.3 g/dL (13.0-18.0); Mean Corp Hgb Conc. 33.3 g/dL (33.0-37.0); Mean Corpuscular Hgb 28.5 pg (27.0-31.0); Mean Corpuscular Volume 85.4 fL (80.0-94.0); Mean Platelet Volume 9.5 fL (7.4-10.4); Nucleated Red Blood Cells % 0 % (-); Platelet Count 354 10^3/uL (130-400); Red Blood Cell Count 3.62 10^6/uL (4.70-6.10); Red Cell Dist. Width 13.2 % (11.5-14.5); White Blood Cell Count 12.9 10^3/uL (4.8-10.8)
[2024-04-04 04:06] LABS: Blood Urea Nitrogen 11 mg/dl (9-20); Calcium 8.4 mg/dl (8.4-10.2); Carbon Dioxide 24 mmol/L (22-30); Chloride 103 mmol/L (98-107); Estimated Creatinine Clearance > 125 ml/min; Glucose 111 mg/dl (70-99); Potassium 3.8 mmol/L (3.5-5.1); Sodium 136 mmol/L (135-145); eGFR > 60.00
[2024-04-04] MEDS: STERILE WATER FOR INJECTION 10 ML IV (04:42)
[2024-04-04] MEDS: ROCEPHIN 1000 MG IV (04:42)
[2024-04-04] MEDS: FLUSH (NSS) 1 FLUSH IV ×2 (04:42→04:43)
[2024-04-04] MEDS: TIKOSYN 500 MCG PO ×2 (08:08→19:52)
[2024-04-04] MEDS: TOPROL XL 100 MG PO (08:08)
[2024-04-04] MEDS: MUCINEX 1200 MG PO ×2 (08:08→19:52)
[2024-04-04] MEDS: PROTONIX 40 MG PO (08:08)
[2024-04-04] MEDS: ATIVAN 1 MG PO ×3 (08:09→22:04)
[2024-04-04] MEDS: VIBRAMYCIN 100 MG PO ×2 (08:09→19:52)
[2024-04-04] MEDS: MIRALAX PO (08:09)
[2024-04-04] MEDS: ELIQUIS 5 MG PO ×2 (08:09→19:52)
--- NOTE | 2024-04-04 10:04 | W.PN.CD ---
Today's Communication / Plan
-
continue Dofetilide load
add spironolactone
Impression / Plan
-
Suspected infection/sepsis
- Per hospitalist
Tachycardia
- Some is likely PAF
- Some is likely PAT
- Known hx of PAF
- At time of surgery ([facility] 2021) he had PVI/LAAL
- Out patient monitor 7d 03/09-: 161 episodes of mostly AT but cannot rule out some AFib, longest 8.5 hrs. Rates 105-148 bpm
- On Eliquis
- In sinus in the office 03/23/2024 he had a IVCD with QRS was 144 with a QTc of 420 ms
- We will try Dofetilide and see if we can suppress his AT/stop digoxin
EKG
- IVCD, will monitor tele and ekgs
- Will be easier to accurately measure QTc when clearly in NSR
-ECG today with QTC 478 m/s continue Dofetilide load
Dilated CM:
-improved on most recent echo EF 50-55% now 45-50% but with a lot of SVT, will reassess when reestablish Sinus consistently
-recently started on Lasix, but does not appear volume overloaded at this time, to my assessment- monitor volume as he is appropriately getting fluids for sepsis
-will add spironolactone
Ascending aortic aneurysm s/p repair with resuspension of AV 2021, [facility]
HTN:
-adding spironolactone
Zofran
- Listed in outpt meds
- Will need to stay off that med as much as possible when on Dofetilide
Subjective:
No CP
TTE 04/03/24:Rhythm seemed to be in and out of PAT/PAF (110s) and sinus at 90 bpm
Mildly reduced left ventricular systolic function.
LV ejection fraction is 45-50% by visual assessment.
Severe left atrial enlargement.
Mild eccentric mitral regurgitation.
Aortic sclerosis without stenosis.
Mild to moderate aortic regurgitation.
Compared to previous echo dated 07/04/2016 the aorta has been replaced. PAT/PAF
is now seen. LVEF is ow mildly depressed.
Consider repeating echo after heart rate/rhythm has been controlled for
several months.
Physical Exam
Vital Signs/Labs
Vital Signs
Temp Pulse Resp BP Pulse Ox
99.7 F 104 20 149/82 95
04/04/24 02:37 04/04/24 08:08 04/04/24 02:37 04/04/24 08:08 04/04/24 02:37
04/03/24 04/04/24 04/05/24
06:59 06:59 06:59
Actual Weight 105.3 kg 104.6 kg
04/04/24 02:46
04/04/24 02:46
Magnesium 2.0 mg/dl (1.6-2.3) 04/02/24 04:16
LAB Results
04/01/24 04/01/24
11:30 17:23
Troponin I 0.015 D < 0.012
Physical Exam
Constitutional: No acute distress
Cardiovascular: Rhythm & rate is regular, Pedal edema is absent and JVD pressure is normal
Respiratory: Respiratory effort normal and Wheeze Present
GI: Soft
Neuro/Psych: AO x 3
Data Reviewed
-
Date of Service: April 04, 2024
EKG: Other (tele intermittent at/af)
--- NOTE | 2024-04-04 10:05 | PTCARENOTE ---
received patient this am in bed sleeping, easily awakened. monitor shows NSR, VSS. patient remains on bed alarm, ATKA, oriented to person, place and time. lung hinojosa shallow, diminished in bases on RA, o2 sat 95%. patient ambulates to BR with
walker, ca. well.
--- NOTE | 2024-04-04 10:37 | PTCARENOTE ---
second dose of Tikosyn given, EKG done, QTC 487.
[2024-04-04] MEDS: ALDACTONE 12.5 MG PO (11:41)
--- NOTE | 2024-04-04 13:42 | W.PN.HOSP.TC ---
Addendum entered and electronically signed by Maxime Washington MD 04/04/24 14:14:
Daughter updated over the phone
Addendum entered and electronically signed by Maxime Washington MD 04/04/24 14:11:
Aortic aneurysm 2/p surgery at [facility] in 2021
Original Note:
Today's Communication/Plan
-
Monitor vital sign closely plan
PT/OT
Continue antibiotics
Check abdomen x-ray
Continue with Tikosyn
Monitor volume status closely
Assessment / Plan
Assessment / Plan
Historical summary:
68y M with PMH significant for history of ascending aortic aneurysm s/p repair with resuspension of aortic valve, dilated cardiomyopathy with LVEF of 40% with recovered LVEF on recent echo at 55%, paroxysmal atrial fibrillation status post A-fib
ablation at [facility] on Eliquis, history of alcohol (not for quite some time) and substance abuse (takes OP cyclobenzaprine, benzo TID scheduled, pain meds prn) and hypertension who presents to ED for evaluation of confusion / recent falls and cough.
RLL Pneumonia, with probable bacterial CAP, (gram negative)
Sepsis secondary to the above
Acute TME secondary to the above, improving but not baseline
continue with ceftriaxone and doxycycline
bcx NGTD
- Confusion appears to be improving as well - follow for continued improvement / other changes.
Suspect TME likely secondary to pneumonia
Fall at Home - Patient with unwitnessed fall last PM ( into Wednesday).
- Reported pain in the R lower chest - but there was no overlying ecchymosis / etc.
- Small abrasion to the L wrist and L chest / upper abdomen.
- CT head and CT C-spine unremarkable.
- PT / OT evaluations.
- Follow for improvement in gait / stability with treatment of sepsis / pneumonia.
ISAI - improving
- SCr = 1.2 compared to baseline of 0.8. Now improving
- Likely secondary to sepsis as noted above.
- Hold diuretic acutely
1 small episode of bright red blood per rectum after patient was straining while having a bowel movement on 04/03. Appears constipation with previous history of hemorrhoids. Started laxatives. If continues to have frequent bloody bowel movement
then will get GI evaluation. now improving
Paroxysmal A-Fib with Rapid Ventricular Response - rate controlled
Was initially started on Cardizem
Now on digoxin
started Tikosyn 04/03. If does not tolerate then likely will be put on amiodarone with possible ablation
Cardiology following
- Continue Eliquis for stroke risk reduction.
Cardiology following
Dilated Cardiomyopathy - Most recent Echo showed improved EF.
- Hold Lasix as noted above, for now
- Follow I/Os, daily weights
Cardiology following, echo 04/03
Anemia of Chronic Disease - chronic issue
No active bleeding, continue to monitor
Ferritin is 347, consistent with anemia of chronic disease.
Chronic Pain Syndrome with Chronic Opioid Dependence and Chronic BZD Dependence leading to Polypharmacy
- Patient on multiple sedating meds including opioids, BZDs, muscle relaxants, etc.
- Continue oxycodone PRN.
- Decreased lorazepam to 1mg TID and hold for sedation.
- Added home med carisoprodol PRN
- Follow-up with outpatient pain management / PCP regarding adjustments in his chronic med regimen.
DVT Prophylaxis: On Eliquis
Code Status: Full
General: Well Developed, Well Nourished, No Apparent Distress and Comfortable
HEENT: Nose Appears Normal and Ears Appear Normal
Respiratory: Clear to Auscultation and Decreased Breath Sounds
Cardiac: Regular Rhythm and S1/S2
GI: Soft, Nontender and Nondistended
Musculoskeletal: Edema, Right Lower Extrem and Edema, Left Lower Extrem
Neuro: Awake, Alert and Oriented
Psych: Calm
I spent a total of 51 minutes with the patient or on the floor. More than 50% of this time involved counseling and coordination of care.
Anticipated Discharge: 24 - 48 hours
Subjective/Interval History
-
Date of Service: April 04, 2024
Denies pain
Objective Data
-
Labs:
Laboratory Results
04/04/24
02:46
WBC 12.9 H
Hgb 10.3 L
Hct 30.9 L
Plt Count 354
Sodium 136
Potassium 3.8
Chloride 103
Carbon Dioxide 24
BUN 11
Creatinine 0.7
Glucose 111 H
Calcium 8.4
Vital Signs:
Vital Signs
Temp Pulse Resp BP Pulse Ox
97.3 F 83 18 116/74 95
04/04/24 12:02 04/04/24 11:41 04/04/24 12:02 04/04/24 11:41 04/04/24 12:02
I&O
04/03/24 04/04/24 04/05/24
06:59 06:59 06:59
Intake Total 480 / 480 960 / 960
Output Total 550 / 550 700 / 700
Balance -70 / -70 260 / 260
--- NOTE | 2024-04-04 14:42 | CM ---
Reviewed chart. Mr. Berrios was transferred to IVU. Met with Mr Berrios and his daughter to review discharge plans. He states prior to admission he resides with his spouse in a two story home with two steps to enter. He states he has a full flight
of steps to get to bedroom/full bathroom. He states he has a powder room on the first floor. He states prior to admission he was independent with ambulation and adls. He states he has a walker and single point caneat home. He states he has a
prescription plan and uses [facility]. We reviewed [facility] with them. They are agreeable to [facility]. He states he was getting out patient therapy for a workers comp issue. He will need a three day supply of Dofetilide to go home with
him. Will need a script sent to [facility]. Medical work-up in progress. The discharge plan is to return home with his spouse and [place] [facility] when medically stable.
--- NOTE | 2024-04-04 15:51 | PTCARENOTE ---
abd. xray completed.
[2024-04-04] MEDS: PERCOCET 5/325 2 TABLET PO (18:33)
--- NOTE | 2024-04-04 18:34 | PTCARENOTE ---
patient c/o lower back pain, Percocet po given as ordered.
[2024-04-04] MEDS: COLACE 100 MG PO (19:52)
[2024-04-04 20:10] LABS: Hepatitis C Antibody Negative (Negative)
[2024-04-04] MEDS: REMERON 30 MG PO (22:03)
[2024-04-04] MEDS: REMERON 15 MG PO (22:04)
[2024-04-05] VITALS (7 sets, daily range): BP systolic 109–136; BP diastolic 74–89; BMI 26.1
--- NOTE | 2024-04-05 01:27 | PTCARENOTE ---
Received patient at change of shift. Patient awake, alert, and oriented x3, sitting in bed. BP 123/86, NSR 80s-90s, 93% on room air. Discussed plan of care for evening. Patient verbalized understanding and agreed to call RN when needing to use the
bathroom. Call avila within reach.
[2024-04-05] MEDS: PERCOCET 5/325 2 TABLET PO ×3 (03:41→14:20)
[2024-04-05] MEDS: STERILE WATER FOR INJECTION 10 ML IV (03:42)
[2024-04-05] MEDS: ROCEPHIN 1000 MG IV (03:42)
[2024-04-05] MEDS: FLUSH (NSS) 1 FLUSH IV ×2 (03:45→04:14)
[2024-04-05 04:22] LABS: % Basophils 0.3 % (0-2); % Eosinophils 2.1 % (0-6); % Immature Granulocytes 1.1 % (0-0.5); % Lymphocytes 14.9 % (20.5-51.1); % Monocytes 8.5 % (1.7-9.3); % Neutrophils 73.1 % (42.2-75.2); Absolute Eosinophils 0.2 10^3/uL (0-0.7); Absolute Immature Granulocytes 0.1 10^3/uL (0-0.05); Absolute Lymphocytes 1.5 10^3/uL (1.2-3.4); Absolute Monocytes 0.9 10^3/uL (0.1-0.6); Absolute Neutrophils 7.5 10^3/uL (1.4-6.5); Hematocrit 29.9 % (39.0-52.0); Hemoglobin 9.8 g/dL (13.0-18.0); Mean Corp Hgb Conc. 32.8 g/dL (33.0-37.0); Mean Corpuscular Hgb 28.2 pg (27.0-31.0); Mean Corpuscular Volume 86.2 fL (80.0-94.0); Mean Platelet Volume 8.9 fL (7.4-10.4); Nucleated Red Blood Cells % 0 % (-); Platelet Count 337 10^3/uL (130-400); Red Blood Cell Count 3.47 10^6/uL (4.70-6.10); Red Cell Dist. Width 13.4 % (11.5-14.5); White Blood Cell Count 10.2 10^3/uL (4.8-10.8)
[2024-04-05 04:45] LABS: Blood Urea Nitrogen 11 mg/dl (9-20); Carbon Dioxide 25 mmol/L (22-30); Chloride 106 mmol/L (98-107); Estimated Creatinine Clearance > 125 ml/min; Glucose 107 mg/dl (70-99); Sodium 138 mmol/L (135-145); eGFR > 60.00
[2024-04-05] MEDS: ELIQUIS 5 MG PO ×2 (08:21→19:58)
[2024-04-05] MEDS: COLACE 100 MG PO ×2 (08:21→19:57)
[2024-04-05] MEDS: TOPROL XL 100 MG PO (08:22)
[2024-04-05] MEDS: TIKOSYN 500 MCG PO ×2 (08:22→19:57)
[2024-04-05] MEDS: MUCINEX 1200 MG PO ×2 (08:22→19:58)
[2024-04-05] MEDS: ALDACTONE 12.5 MG PO (08:22)
[2024-04-05] MEDS: ATIVAN 1 MG PO ×3 (08:23→21:58)
[2024-04-05] MEDS: VIBRAMYCIN 100 MG PO ×2 (08:23→19:58)
[2024-04-05] MEDS: PROTONIX 40 MG PO (08:23)
[2024-04-05] MEDS: MIRALAX PO (08:23)
--- NOTE | 2024-04-05 10:02 | W.PN.CD ---
Today's Communication / Plan
-
cotninue Dofetilide load with intensive monitoring of ecgs, tele
d/c planning for tomorrow?
Impression / Plan
-
Suspected infection/sepsis
- Per hospitalist
Tachycardia
- Some is likely PAF
- Some is likely PAT
- Known hx of PAF
- At time of surgery ([facility] 2021) he had PVI/LAAL
- Out patient monitor 7d 03/09-: 161 episodes of mostly AT but cannot rule out some AFib, longest 8.5 hrs. Rates 105-148 bpm
- On Eliquis
- In sinus in the office 03/23/2024 he had a IVCD with QRS was 144 with a QTc of 420 ms
- We will try Dofetilide and see if we can suppress his AT/stop digoxin---> much improved in the last 24 hours.
EKG
- IVCD, will monitor tele and ekgs
- Will be easier to accurately measure QTc when clearly in NSR
-ECG today with QTC 488 m/s continue Dofetilide load, two more inpatient doses needed
Dilated CM:
-improved on most recent echo EF 50-55% now 45-50% but with a lot of SVT, will reassess when reestablish Sinus consistently
-recently started on Lasix, but does not appear volume overloaded at this time, to my assessment- monitor volume as he is appropriately getting fluids for sepsis
-added spironolactone
-no CHF sympotms, will conside sglt2i if those develop
Ascending aortic aneurysm s/p repair with resuspension of AV 2021, [facility]
HTN:
-adding spironolactone with improvement
Zofran
- Listed in outpt meds
- Will need to stay off that med as much as possible when on Dofetilide
Subjective:
he is feeling much better, no sob, able to ambulate without issue
Data:
TTE 04/03/24:Rhythm seemed to be in and out of PAT/PAF (110s) and sinus at 90 bpm
Mildly reduced left ventricular systolic function.
LV ejection fraction is 45-50% by visual assessment.
Severe left atrial enlargement.
Mild eccentric mitral regurgitation.
Aortic sclerosis without stenosis.
Mild to moderate aortic regurgitation.
Compared to previous echo dated 07/04/2016 the aorta has been replaced. PAT/PAF
is now seen. LVEF is ow mildly depressed.
Consider repeating echo after heart rate/rhythm has been controlled for
several months.
Physical Exam
Vital Signs/Labs
Vital Signs
Temp Pulse Resp BP Pulse Ox
97.3 F 94 18 136/85 96
04/05/24 08:14 04/05/24 08:22 04/05/24 08:14 04/05/24 08:30 04/05/24 08:30
04/04/24 04/05/24 04/06/24
06:59 06:59 06:59
Actual Weight 104.6 kg 102.4 kg
04/05/24 04:01
04/05/24 04:01
Magnesium 2.0 mg/dl (1.6-2.3) 04/02/24 04:16
Physical Exam
Constitutional: No acute distress
Cardiovascular: Rhythm & rate is regular, Pedal edema is absent, JVD pressure is normal and Systolic murmur absent
Respiratory: Respiratory effort normal, Lungs clear to auscul., Wheeze Absent, Crackles Absent and Rhonchi Absent
Neuro/Psych: AO x 3
Data Reviewed
-
Date of Service: April 05, 2024
Medical Decision Making: Review of Case with other Provider (Dr Washington, continue dofetilide, will finish tomorrow)
EKG: Tracing Personally Visualized and interpreted (sinus qtc 488, ivcd) and Other (sinus)
--- NOTE | 2024-04-05 10:20 | PTCARENOTE ---
c/o back pain, Percocet po given as ordered.
--- NOTE | 2024-04-05 13:47 | W.PN.HOSP.TC ---
Today's Communication/Plan
-
monitor vitals
see plan
Continue with laxatives
Continue with Tikosyn, monitor QTc
Hopeful discharge tomorrow
Discussed with daughter over the phone
Assessment / Plan
Assessment / Plan
Historical summary:
68y M with PMH significant for history of ascending aortic aneurysm s/p repair with resuspension of aortic valve, dilated cardiomyopathy with LVEF of 40% with recovered LVEF on recent echo at 55%, paroxysmal atrial fibrillation status post A-fib
ablation at [facility] on Eliquis, history of alcohol (not for quite some time) and substance abuse (takes OP cyclobenzaprine, benzo TID scheduled, pain meds prn) and hypertension who presents to ED for evaluation of confusion / recent falls and cough.
RLL Pneumonia, with probable bacterial CAP, (gram negative)
Sepsis secondary to the above
Acute TME secondary to the above, improving but not baseline
continue with ceftriaxone and doxycycline
bcx NGTD
- Confusion appears to be improving as well - follow for continued improvement / other changes.
Suspect TME likely secondary to pneumonia; improving
Fall at Home - Patient with unwitnessed fall last PM ( into Wednesday).
- Reported pain in the R lower chest - but there was no overlying ecchymosis / etc.
- Small abrasion to the L wrist and L chest / upper abdomen.
- CT head and CT C-spine unremarkable.
- PT / OT evaluations.
- Follow for improvement in gait / stability with treatment of sepsis / pneumonia.
ISAI - improving
- SCr = 1.2 compared to baseline of 0.8. Now improving
- Likely secondary to sepsis as noted above.
- Hold diuretic acutely
Constipation
1 small episode of bright red blood per rectum after patient was straining while having a bowel movement on 04/03. Appears constipation with previous history of hemorrhoids. Started laxatives. If continues to have frequent bloody bowel movement
then will get GI evaluation. now improving
Continue with laxative
Nausea now improved after bowel movements
Abdomen x-ray showed constipation
Paroxysmal A-Fib with Rapid Ventricular Response - rate controlled
Was initially started on Cardizem
Now on digoxin
started Tikosyn 04/03. If does not tolerate then likely will be put on amiodarone with possible ablation
Cardiology following
- Continue Eliquis for stroke risk reduction.
Cardiology following
Dilated Cardiomyopathy - Most recent Echo showed improved EF.
- Hold Lasix as noted above, for now
- Follow I/Os, daily weights
Cardiology following, echo 04/03
Anemia of Chronic Disease - chronic issue
No active bleeding, continue to monitor
Ferritin is 347, consistent with anemia of chronic disease.
Chronic Pain Syndrome with Chronic Opioid Dependence and Chronic BZD Dependence leading to Polypharmacy
- Patient on multiple sedating meds including opioids, BZDs, muscle relaxants, etc.
- Continue oxycodone PRN.
- Decreased lorazepam to 1mg TID and hold for sedation.
- Added home med carisoprodol PRN
- Follow-up with outpatient pain management / PCP regarding adjustments in his chronic med regimen.
DVT Prophylaxis: On Eliquis
Code Status: Full
General: Well Developed, Well Nourished, No Apparent Distress and Comfortable
HEENT: Nose Appears Normal and Ears Appear Normal
Respiratory: Clear to Auscultation and Decreased Breath Sounds
Cardiac: Regular Rhythm and S1/S2
GI: Soft, Nontender and Nondistended
Musculoskeletal: Edema, Right Lower Extrem and Edema, Left Lower Extrem
Neuro: Awake, Alert and Oriented
Psych: Calm
I spent a total of 52 minutes with the patient or on the floor. More than 50% of this time involved counseling and coordination of care.
Anticipated Discharge: Within 24 hours
Subjective/Interval History
-
Date of Service: April 05, 2024
denies pain
Objective Data
-
Labs:
Laboratory Results
04/05/24
04:01
WBC 10.2
Hgb 9.8 L
Hct 29.9 L
Plt Count 337
Sodium 138
Potassium 4.0
Chloride 106
Carbon Dioxide 25
BUN 11
Creatinine 0.7
Glucose 107 H
Calcium 8.0 L
Vital Signs:
Vital Signs
Temp Pulse Resp BP Pulse Ox
98.4 F 83 18 136/85 95
04/05/24 12:03 04/05/24 11:00 04/05/24 12:03 04/05/24 08:30 04/05/24 12:03
I&O
04/04/24 04/05/24 04/06/24
06:59 06:59 06:59
Intake Total 960 / 960
Output Total 700 / 700
Balance 260 / 260
--- NOTE | 2024-04-05 14:47 | PTCARENOTE ---
patient c/o back pain, Percocet po given as ordered.
--- NOTE | 2024-04-05 15:34 | CM ---
Reviewed chart. Met with Mr. Berrios to review discharge plans. He states he maybe able to go home soon. Prior to admission he resides with his spouse in a two story home with two steps. He has a full flight of steps to get to bedroom/full bathroom.
He has a powder room on the first floor. Prior to admission he was independent with ambulation and adls. He has a walker and single point cane at home. He has a prescription plan and uses [facility]. We reviewed [facility] with him. He is
agreeable to [place] [facility]. He will need a three day script for Dofetilide to go to [facility] so he can take it home with him. Will confirm tomorrow if his pharmacy has it in stock. Medical work-up in progress. The discharge plan is
to return home with his spouse and [facility] [place] [facility] when medically stable.
--- NOTE | 2024-04-05 20:31 | PTCARENOTE ---
Received patient at change of shift. Sitting in bed, alert and oriented x3. BP 119/76, NSR 90s, 94% on room air. Discussed plan of care for evening. Patient verbalized understanding. Call avila within reach.
[2024-04-05] MEDS: MIRALAX 17 GRAMS PO (20:52)
[2024-04-05] MEDS: REMERON 15 MG PO (21:58)
[2024-04-05] MEDS: REMERON 30 MG PO (21:58)
[2024-04-06] VITALS (7 sets, daily range): BP systolic 96–134; BP diastolic 66–83; PULSE 92; O2SAT 94
[2024-04-06] MEDS: FLUSH (NSS) 1 FLUSH IV ×2 (03:51)
[2024-04-06] MEDS: STERILE WATER FOR INJECTION 10 ML IV (03:52)
[2024-04-06] MEDS: ROCEPHIN 1000 MG IV (03:52)
[2024-04-06] MEDS: PERCOCET 5/325 2 TABLET PO (04:12)
[2024-04-06 04:29] LABS: % Basophils 0.3 % (0-2); % Eosinophils 1.2 % (0-6); % Immature Granulocytes 0.9 % (0-0.5); % Lymphocytes 13.8 % (20.5-51.1); % Monocytes 6.8 % (1.7-9.3); Absolute Eosinophils 0.1 10^3/uL (0-0.7); Absolute Immature Granulocytes 0.1 10^3/uL (0-0.05); Absolute Lymphocytes 1.6 10^3/uL (1.2-3.4); Absolute Monocytes 0.8 10^3/uL (0.1-0.6); Absolute Neutrophils 9.1 10^3/uL (1.4-6.5); Hematocrit 27.3 % (39.0-52.0); Hemoglobin 9.3 g/dL (13.0-18.0); Mean Corp Hgb Conc. 34.1 g/dL (33.0-37.0); Mean Platelet Volume 9.1 fL (7.4-10.4); Nucleated Red Blood Cells % 0 % (-); Platelet Count 355 10^3/uL (130-400); Red Blood Cell Count 3.21 10^6/uL (4.70-6.10); Red Cell Dist. Width 13.3 % (11.5-14.5); White Blood Cell Count 11.8 10^3/uL (4.8-10.8)
[2024-04-06 05:04] LABS: Blood Urea Nitrogen 12 mg/dl (9-20); Calcium 7.9 mg/dl (8.4-10.2); Carbon Dioxide 23 mmol/L (22-30); Chloride 107 mmol/L (98-107); Estimated Creatinine Clearance > 125 ml/min; Glucose 102 mg/dl (70-99); Potassium 4.2 mmol/L (3.5-5.1); Sodium 137 mmol/L (135-145); eGFR > 60.00
--- NOTE | 2024-04-06 08:35 | W.PN.CD ---
Today's Communication / Plan
-
continue Dofetilide, one more monitored dose, if ok then can d/c home today
Impression / Plan
-
Suspected infection/sepsis
- Per hospitalist
Tachycardia
- Some is likely PAF
- Some is likely PAT
- Known hx of PAF
- At time of surgery ([facility] 2021) he had PVI/LAAL
- Out patient monitor 7d 03/09-: 161 episodes of mostly AT but cannot rule out some AFib, longest 8.5 hrs. Rates 105-148 bpm
- On Eliquis
- In sinus in the office 03/23/2024 he had a IVCD with QRS was 144 with a QTc of 420 ms
- We will try Dofetilide and see if we can suppress his AT/stop digoxin---> much improved in the last 48 hours.
EKG
- IVCD, will monitor tele and ekgs
- Will be easier to accurately measure QTc when clearly in NSR
-ECG today with QTC 496 m/s continue Dofetilide load, one more inpatient doses needed
Dilated CM:
-improved on most recent echo EF 50-55% now 45-50% but with a lot of SVT, will reassess when reestablish Sinus consistently
-recently started on Lasix, but does not appear volume overloaded at this time, to my assessment- monitor volume as he is appropriately getting fluids for sepsis
-added spironolactone
-no CHF sympotms, will conside sglt2i if those develop
Ascending aortic aneurysm s/p repair with resuspension of AV 2021, [facility]
HTN:
-added spironolactone with improvement
-will need renal panel in 1 week
Zofran
- Listed in outpt meds
- Will need to stay off that med as much as possible when on Dofetilide--reviewed with patient multiple times.
Subjective:
he is feeling much better happy to have showered yesterday.
Data:
TTE 04/03/24:Rhythm seemed to be in and out of PAT/PAF (110s) and sinus at 90 bpm
Mildly reduced left ventricular systolic function.
LV ejection fraction is 45-50% by visual assessment.
Severe left atrial enlargement.
Mild eccentric mitral regurgitation.
Aortic sclerosis without stenosis.
Mild to moderate aortic regurgitation.
Compared to previous echo dated 07/04/2016 the aorta has been replaced. PAT/PAF
is now seen. LVEF is ow mildly depressed.
Consider repeating echo after heart rate/rhythm has been controlled for
several months.
Physical Exam
Vital Signs/Labs
Vital Signs
Temp Pulse Resp BP Pulse Ox
98.8 F 88 20 110/83 91
04/06/24 06:53 04/06/24 07:00 04/06/24 06:53 04/06/24 06:54 04/06/24 06:54
04/05/24 04/06/24 04/07/24
06:59 06:59 06:59
Actual Weight 102.4 kg
04/06/24 04:07
04/06/24 04:07
Magnesium 2.0 mg/dl (1.6-2.3) 04/02/24 04:16
Data Reviewed
-
Date of Service: April 06, 2024
EKG: Tracing Personally Visualized and interpreted (sinus qtc stable IVCD) and Other (sinus, brief af)
[2024-04-06] MEDS: VIBRAMYCIN 100 MG PO (09:00)
[2024-04-06] MEDS: TIKOSYN 500 MCG PO (09:00)
[2024-04-06] MEDS: MUCINEX 1200 MG PO (09:01)
[2024-04-06] MEDS: PROTONIX 40 MG PO (09:01)
[2024-04-06] MEDS: TOPROL XL 100 MG PO (09:02)
[2024-04-06] MEDS: ALDACTONE 12.5 MG PO (09:02)
[2024-04-06] MEDS: ATIVAN 1 MG PO ×2 (09:02→15:31)
[2024-04-06] MEDS: ELIQUIS 5 MG PO (09:03)
[2024-04-06] MEDS: COLACE 100 MG PO (09:03)
--- NOTE | 2024-04-06 10:24 | PTCARENOTE ---
Assumed care of pt from night RN. Pt received asleep, but wakens easily to verbal. VSS, CM shows NSR 80's, POX 94% on RA. Dose # 6 of Tikosyn load given. Pt denies any pain or discomfort at this time.
--- NOTE | 2024-04-06 11:43 | VNURNOTE ---
Home Health Liaison spoke with patient to discuss [facility] nurse/therapy, visits, schedule and homebound status. Patient is agreeable - only if the first visit is NOT on a weekend- He understands that visits at home will be 2-3 x per week to assess and
teach medical management. 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 Patient is aware that [facility] will contact him prior to visits.
[facility] referral accepted in [facility].
--- NOTE | 2024-04-06 11:57 | W.PN.HOSP.TC ---
Addendum entered and electronically signed by Maxime Washington MD 04/06/24 13:07:
EKG looks okay. Discussed with cardiology. Discharge today
Time of discharge 38-minutes
Original Note:
Today's Communication/Plan
-
Monitor vital signs see plan
Last dose of Tikosyn and EKG, if looks good then likely discharge today
Continue with laxatives
Will transition to PO antibiotics for 2 more days on discharge
likely dc today pending EKG
Assessment / Plan
Assessment / Plan
Historical summary:
68y M with PMH significant for history of ascending aortic aneurysm s/p repair with resuspension of aortic valve, dilated cardiomyopathy with LVEF of 40% with recovered LVEF on recent echo at 55%, paroxysmal atrial fibrillation status post A-fib
ablation at [facility] on Eliquis, history of alcohol (not for quite some time) and substance abuse (takes OP cyclobenzaprine, benzo TID scheduled, pain meds prn) and hypertension who presents to ED for evaluation of confusion / recent falls and cough.
RLL Pneumonia, with probable bacterial CAP, (gram negative)
Sepsis secondary to the above
Acute TME secondary to the above, improving but not baseline
Finish 5 days of antibiotics, will transition to 2 more days with PO on dc
bcx NGTD
- Confusion appears to be improving as well - follow for continued improvement / other changes.
Suspect TME likely secondary to pneumonia; improving
Fall at Home - Patient with unwitnessed fall last PM ( into Wednesday).
- Reported pain in the R lower chest - but there was no overlying ecchymosis / etc.
- Small abrasion to the L wrist and L chest / upper abdomen.
- CT head and CT C-spine unremarkable.
- PT / OT evaluations.
- Follow for improvement in gait / stability with treatment of sepsis / pneumonia.
ISAI - improving
- SCr = 1.2 compared to baseline of 0.8. Now improving
- Likely secondary to sepsis as noted above.
- Hold diuretic acutely
Constipation
1 small episode of bright red blood per rectum after patient was straining while having a bowel movement on 04/03. Appears constipation with previous history of hemorrhoids. Started laxatives. If continues to have frequent bloody bowel movement
then will get GI evaluation. now improving
Continue with laxative
Nausea now improved after bowel movements
Abdomen x-ray showed constipation
Paroxysmal A-Fib with Rapid Ventricular Response - rate controlled
Was initially started on Cardizem
dig on hold
started Tikosyn 04/03. If does not tolerate then likely will be put on amiodarone with possible ablation
Cardiology following
- Continue Eliquis for stroke risk reduction.
Cardiology following
Dilated Cardiomyopathy - Most recent Echo showed improved EF.
- Hold Lasix as noted above, for now
- Follow I/Os, daily weights
Cardiology following, echo 04/03
Anemia of Chronic Disease - chronic issue
No active bleeding, continue to monitor
Ferritin is 347, consistent with anemia of chronic disease.
Chronic Pain Syndrome with Chronic Opioid Dependence and Chronic BZD Dependence leading to Polypharmacy
- Patient on multiple sedating meds including opioids, BZDs, muscle relaxants, etc.
- Continue oxycodone PRN.
- Decreased lorazepam to 1mg TID and hold for sedation.
- Added home med carisoprodol PRN
- Follow-up with outpatient pain management / PCP regarding adjustments in his chronic med regimen.
DVT Prophylaxis: On Eliquis
Code Status: Full
General: Well Developed, Well Nourished, No Apparent Distress and Comfortable
HEENT: Nose Appears Normal and Ears Appear Normal
Respiratory: Clear to Auscultation and Decreased Breath Sounds
Cardiac: Regular Rhythm and S1/S2
GI: Soft, Nontender and Nondistended
Musculoskeletal: Edema, Right Lower Extrem and Edema, Left Lower Extrem
Neuro: Awake, Alert and Oriented
Psych: Calm
Anticipated Discharge: Today
Subjective/Interval History
-
Date of Service: April 06, 2024
Denies pain
Objective Data
-
Labs:
Laboratory Results
04/06/24
04:07
WBC 11.8 H
Hgb 9.3 L
Hct 27.3 L
Plt Count 355
Sodium 137
Potassium 4.2
Chloride 107
Carbon Dioxide 23
BUN 12
Creatinine 0.7
Glucose 102 H
Calcium 7.9 L
Vital Signs:
Vital Signs
Temp Pulse Resp BP Pulse Ox
97.9 F 81 20 116/72 91
04/06/24 11:16 04/06/24 11:16 04/06/24 11:16 04/06/24 11:16 04/06/24 11:16
--- NOTE | 2024-04-06 12:23 | CM ---
Reviewed chart. Met with Mr. Berrios to review discharge plans. Spoke with [facility] to see if they have Dofetilide 500 mcg in stock. Three day script sent to [facility] for the three day supply to go home with him. Prior to admission he
resides with his spouse in a two story home with two steps to enter. He has a full flight of steps to get to bedroom/full bathroom. He has a powder room on the first floor. Prior to admission he was independent with ambulation and adls. He has a
walker and single point cane at home. Reviewed [facility] Services with him. He is agreeable to [facility]. Medical work-up in progress. The discharge plan is to return home with his spouse and [facility] when medically stable
--- NOTE | 2024-04-06 13:12 | W.DCSUMMARY ---
Discharge Summary
Discharge Data
Date of Admission: 04/01/24
Date of Discharge: 04/06/24
-
Pending Results: No
Hospital Course
68-year-old male with past medical history of atrial fibrillation, anemia, chronic pain syndrome with chronic opioid dependence, dilated cardiomyopathy, ascending aortic aneurysm status post repair, history of alcohol came to the hospital with right
lower lobe pneumonia which was initially treated with IV antibiotics were later transitioned to p.o. antibiotics prior to discharge. Patient also had some toxic metabolic encephalopathy which over time continue to improve. Initially patient also
had acute kidney injury which over time continue to improve. Patient also had persistent nausea which was likely thought was secondary to severe constipation which over time continue to improve with laxatives. His hospital course was complicated
with persistent periods of atrial fibrillation or atrial tachycardia. Patient was seen by cardiology who initially started digoxin however then later transitioned to Tikosyn. Patient QTc was okay prior to the discharge. Once patient symptoms
continue to improve and his atrial fibrillation was controlled, he was then discharged home with instructions to follow-up with all his physicians outpatient.
Discharge Plan
-
Patient Disposition: Home with Home Care
Discharge Diagnosis/Procedures: Right lower lobe pneumonia
Acute toxic metabolic encephalopathy
Acute kidney injury
Constipation
Paroxysmal atrial fibrillation with rapid ventricular rate
Dilated cardiomyopathy
Anemia of chronic disease
Diet: As tolerated
Activity: As tolerated
Driving Restrictions: As prior to admission
Bathing Restrictions: None
Blood Work: BMP one week- sent electronically to [facility]
Referrals:
Rio Fiore MD [Active] -
Robert Brian DO [Family Provider] - in less than 1 week
Angelique Rowell MD [Active] - 04/12/24 2:00 pm (This visit is at the [facility] in [place], [place]. [address] [place] [address], [address]. [phone].)
Prescriptions:
New
polyethylene glycol 3350 17 gram Powder In Packet
17 g PO DAILY Qty: 30 0RF
oxycodone-acetaminophen 5-325 mg Tablet
2 tab PO Q4H PRN (Reason: moderate pain) Qty: 0 0RF
docusate sodium 100 mg Capsule
100 mg PO BID Qty: 60 0RF
guaifenesin 600 mg Tablet Extended Release 12hr
1,200 mg PO Q12 7 Days Qty: 28 0RF
pantoprazole 40 mg Tablet,Delayed Release (Dr/Ec)
40 mg PO DAILY Qty: 30 0RF
dofetilide 500 mcg Capsule
500 mcg PO Q12 Qty: 60 3RF
doxycycline hyclate 100 mg Capsule
100 mg PO Q12 2 Days Qty: 4 0RF
spironolactone 25 mg Tablet
12.5 mg PO DAILY Qty: 30 0RF
cefdinir 300 mg capsule
300 mg PO BID Qty: 4 0RF
Continued
Eliquis 5 MG tablet
5 mg PO BID
furosemide [Lasix] 20 mg tablet
20 mg PO DAILY Qty: 5 0RF
metoprolol succinate 100 mg Tablet Extended Release 24 Hr
100 mg PO DAILY
mirtazapine 45 mg Tablet
45 mg PO HS
Changed
carisoprodol 350 MG tablet
350 mg PO TID PRN (Reason: Muscle spasms) Qty: 0 0RF
lorazepam 1 MG tablet
1 mg PO TID PRN (Reason: ANXIETY) Qty: 0 0RF
Patient Comments:
PRESCRIPTION WRITTEN FOR PRN ON 03/27/24 BUT PATIENT TAKES EVER DAY
Held
losartan 25 mg Tablet
25 mg PO DAILY
Hold Instructions: Restart when blood pressure is greater than 140/90
Discontinued
ondansetron HCl [Zofran] 8 mg Tablet
8 mg PO DAILY
oxycodone-acetaminophen [Percocet] 10-325 mg Tablet
1 tab PO QID
Discharge Orders:
Discharge Patient (As Directed); Ordered 04/06/24
Ordered By: Maxime Washington
Care Plan Goals
Care Plan Goals:
Problem: Readiness for enhanced knowledge related to diagnosis and treatment plan
Goal: Understand your diagnosis and treatment plan needs, including medications if applicable.
Instructions: Know your diagnosis, underlying causes and treatment plan options, including medications if applicable. Consult with your health care team to learn about your diagnosis and treatment plan, including medications if applicable.
Discharge Date and Time
Discharge Date/Time: 04/06/24 17:09
Print Language: GERMAN
--- NOTE | 2024-04-06 17:07 | PTCARENOTE ---
All D/C info reviewed with pt and daughter, all questions answered. Pt D/C'd home with daughter.
== END 2024-04-06 17:09 | disposition home health service (06) | DRG 871 ==
LOC: IVU 03:19
PROVIDERS: Internal Medicine; ADMITTING PHYSICIAN Hospitalist; ATTENDING PHYSICIAN Internal Medicine; CONSULT PHYSICIAN Internal Medicine Cardiovascular Disease; EMERGENCY PHYSICIAN Emergency Medicine; FAMILY PHYSICIAN Family Medicine
DX: A41.9 Sepsis, unspecified organism (principal); G92.8 Other toxic encephalopathy; J15.69 Pneumonia due to other Gram-negative bacteria; F11.20 Opioid dependence, uncomplicated; I42.0 Dilated cardiomyopathy; N17.9 Acute kidney failure, unspecified; D63.8 Anemia in other chronic diseases classified elsewhere; G89.4 Chronic pain syndrome; F17.200 Nicotine dependence, unspecified, uncomplicated; F41.9 Anxiety disorder, unspecified; I48.0 Paroxysmal atrial fibrillation; I10 Essential (primary) hypertension; S20.312A Abrasion of left front wall of thorax, initial encounter; S60.812A Abrasion of left wrist, initial encounter; K59.00 Constipation, unspecified; K64.9 Unspecified hemorrhoids; M51.369 Other intervertebral disc degeneration, lumbar region without mention of lumbar back pain or lower extremity pain; W01.0XXA Fall on same level from slipping, tripping and stumbling without subsequent striking against object, initial encounter; Y92.009 Unspecified place in unspecified non-institutional (private) residence as the place of occurrence of the external cause; Z88.0 Allergy status to penicillin; Z79.01 Long term (current) use of anticoagulants; Z79.899 Other long term (current) drug therapy; Z11.52 Encounter for screening for COVID-19
CPT/HCPCS: 70450; 71101; 72125; 74018; 80048; 80053; 81003; 81015; 82550; 82607; 82728; 83036; 83540; 83550; 83605; 83735; 84443; 84484; 85014; 85018; 85025; 85027; 86803; 87040; 87070; 87086; 87205; 87502; 87811; 93005; 93306; 94760; 96374; 97116; 97162; 97166; 99285; J1160

== ENCOUNTER 2025-01-31 04:55 | Inpatient (IN) | payer MEDICARE, OTHER, SELFPAY ==
[2025-01-31] VITALS (13 sets, daily range): BP systolic 111–181; BP diastolic 67–103; BMI 31.1; BMI 30.5
[2025-01-31 01:15] LABS: Hematocrit 35.5 % (39.0-52.0); Hemoglobin 11.7 g/dL (13.0-18.0); Mean Corp Hgb Conc. 33.0 g/dL (33.0-37.0); Mean Corpuscular Volume 88.3 fL (80.0-94.0); Nucleated Red Blood Cells % 0 % (-); Platelet Count 178 10^3/uL (130-400); Red Cell Dist. Width 13.4 % (11.5-14.5)
[2025-01-31 01:42] LABS: ALT (SGPT) 12 U/L (0-50); AST (SGOT) 17 U/L (17-59); Albumin 4.4 g/dl (3.5-5.0); Alkaline Phosphatase 55 U/L (38-126); Blood Urea Nitrogen 15 mg/dl (9-20); Calcium 9.0 mg/dl (8.4-10.2); Carbon Dioxide 28 mmol/L (22-30); Chloride 104 mmol/L (98-107); Estimated Creatinine Clearance 114 ml/min; Glucose 124 mg/dl (70-99); Lipase 47 U/L (23-300); Potassium 3.8 mmol/L (3.5-5.1); Sodium 137 mmol/L (135-145); Total Protein 7.0 g/dl (6.3-8.2); eGFR > 60.00
[2025-01-31 01:54] LABS: Troponin I 0.020 ng/ml
[2025-01-31 03:40] LABS: Urine Character Clear (Clear)
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
--- NOTE | 2025-01-31 04:57 | HPS.HSE ---
Family Physician
-
Family Physician: Robert Brian
Chief Complaint
-
sob
History of Present Illness
69 male history of atrial fibrillation on Eliquis, anemia, chronic pain syndrome with chronic opioid dependence, dilated cardiomyopathy, aortic aneurysm ascending s/p repair presented with shortness of breath and help heart pounding sensation that
has been progressively getting worse over the last couple of days. Recently treated with antibiotics steroids for bacterial lung infection however since coming off of them symptoms have gotten worse. Denies lower extremity swelling and orthopnea.
When I evaluated him he was resting comfortably in bed however telemetry 45 A-fib atrial fibrillation once he awoke his heart rate improved and Been going in and out of atrial fibrillation patient with a heart rate ranging between 60 and 80 on
telemetry.
Medical History
Past Medical History
Past Medical History: Reports Arrhythmia, CAD, CHF, GERD and HTN
Past Surgical History: Reports Cardiac
Social History
Tobacco: Non-smoker
Drug: None
Living: With Family
Family History
Family History: Not pertinent
Allergies / Home Medications
Allergies reflects when Allergies were last updated in [employer].
Home Medications with original date entered in [employer]
Allergy/Medication List:
Allergies
Allergy/AdvReac Type Severity Reaction Status Date / Time
Penicillins Allergy Unknown Unknown Verified 01/31/25 00:42
Home Medications
apixaban 5 mg tablet (Eliquis) 5 mg PO BID Blood clot prevention/tx 07/26/18
furosemide 20 mg tablet (Lasix) 20 mg PO DAILY #5 tabs 03/07/24
losartan 25 mg tablet 25 mg PO DAILY Blood Pressure 04/01/24
Held on 04/06/24. Instructions: Restart when blood pressure is greater than 140/90
metoprolol succinate 100 mg tablet,extended release 24 hr 100 mg PO DAILY Blood Pressure 04/01/24
mirtazapine 45 mg tablet 45 mg PO HS 04/01/24
carisoprodol 350 mg tablet 350 mg PO TID PRN Muscle spasms #0 tabs 04/05/24
docusate sodium 100 mg capsule 100 mg PO BID #60 caps 04/05/24
lorazepam 1 mg tablet 1 mg PO TID PRN ANXIETY #0 tabs 04/05/24
oxycodone-acetaminophen 5 mg-325 mg tablet 2 tab PO Q4H PRN moderate pain #0 tabs 04/05/24
pantoprazole 40 mg tablet,delayed release 40 mg PO DAILY #30 tabs 04/05/24
polyethylene glycol 3350 17 gram oral powder packet 17 g PO DAILY #30 ea 04/05/24
cefdinir 300 mg capsule 300 mg PO BID #4 caps 04/06/24
dofetilide 500 mcg capsule 500 mcg PO Q12 #60 caps 04/06/24
spironolactone 25 mg tablet 12.5 mg (1/2 x 25 mg) PO DAILY #30 tabs 04/06/24
dofetilide 500 mcg capsule (Tikosyn) 500 mcg PO BID 01/31/25
Review of Systems
-
A 12 point ROS was completed and negative except as noted: Yes
Physical Exam
Vital Signs
Vital Signs
Temp Pulse Resp BP Pulse Ox
97.6 F 52 14 165/95 93
01/31/25 00:37 01/31/25 04:00 01/31/25 04:00 01/31/25 03:03 01/31/25 03:48
Physical Exam
General: Well Developed, Well Nourished and No Apparent Distress
HEENT: NormoCephalic and Anicteric
Respiratory: Wheezes; No Clear or Rales
Cardiac: S1/S2 and Irregular Rhythm
GI: Soft, Non Tender, Non Distended and Normal Bowel Sounds
Musculoskeletal: No Clubbing and No Cyanosis
Skin: Warm and Dry
Neuro: Awake and AO x 3
Psych: Calm
Laboratory Results
-
01/31/25 01:06
01/31/25 01:06
Laboratory Results
Lactic Acid 1.4 mmol/L (0.7-2.0) 01/31/25 01:06
Total Bilirubin 0.2 mg/dl (0.2-1.3) 01/31/25 01:06
AST 17 U/L (17-59) 01/31/25 01:06
ALT 12 U/L (0-50) 01/31/25 01:06
Alkaline Phosphatase 55 U/L (38-126) 01/31/25 01:06
Troponin I 0.020 ng/ml 01/31/25 01:06
Lipase 47 U/L (23-300) 01/31/25 01:06
Impression/Plan
-
Acute bronchitis versus mild CHF exacerbation versus viral syndrome
Steroids prednisone 40 mg daily
IV Lasix x 1
COVID flu
Keep SpO2 greater than 90%
Incentive spirometer Acapella
Nocturnal bradycardia with improvement of HR when awake
?Sleep apnea
Will need outpatient sleep study
Heart failure with mildly reduced ejection fraction
IV Lasix x 1 reassess volume status in the morning
Continue MRA beta-tavon losartan
Discussed with cardiology SGLT2 inhibitor
2D echocardiogram
Daily weights monitor I's and O's
Follow renal function
Keep K greater than 4 magnesium greater than 2
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
Paroxysmal atrial fibrillation
Continue Tikosyn and Eliquis
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
2D echocardiogram
GERD
PPI
Chronic pain syndrome
On Percocet and Carisoprodol
[2025-01-31 05:14] LABS: COVID-19 Antigen Negative (Negative)
--- NOTE | 2025-01-31 06:21 | PTCARENOTE ---
Received pt from ED, pt ambulated with no assistance from stretcher to bed, states he usually uses a cane at home on the right side, VSS, pt oriented to call light and room, resting comfortably in bed at this time with call light at side.
[2025-01-31] MEDS: LASIX 40 MG IV ×2 (07:59→15:48)
[2025-01-31] MEDS: ALDACTONE 12.5 MG PO (08:00)
[2025-01-31] MEDS: PROTONIX 40 MG PO (08:00)
[2025-01-31] MEDS: COZAAR 25 MG PO (08:00)
[2025-01-31] MEDS: FOLVITE 1 MG PO (08:00)
[2025-01-31] MEDS: VITAMIN B1 100 MG PO (08:00)
[2025-01-31] MEDS: ELIQUIS 5 MG PO ×2 (08:00→21:01)
[2025-01-31] MEDS: TIKOSYN 500 MCG PO ×2 (08:00→21:01)
--- NOTE | 2025-01-31 08:00 | CON.CAR ---
Addendum entered and electronically signed by Mustapha Higgins MD 01/31/25 10:53:
I saw and examined the patient independently and performed majority of MDM.
The SPARMAKER's note was reviewed and I agree with the note with changes/additions below.
Comment: 69 yo male with PMH of chronic HFmEF, EF 45%, paroxysmal A fib on eliquis and tikosyn, recent bronchitis admitted with SOB, wheezing, edema, 20lb weight gain. Takes lasix 20mg prn, about 2-3x per week at home. There is no chest pain. Exam
with irregular rhythm, no murmurs, 1+ LE edema. Tele: SB, IVCD, PAC's. Cr 0.9.
Acute on chronic HFmEF. Severe, requiring hospitalization for IV diuresis and close monitoring of labs/tele. Continue lasix 40mg IV bid. Echo.
Paroxysmal A fib. Stable in sinus with PAC's. Continue eliquis and tikosyn.
Original Note:
Consultation
Consultation Request
Date/Time Consultation Requested: 01/31/25 06
Date/Time Consultation Performed: 01/31/25 0800
Requesting Provider: Dr. Jose Franco
Performing Provider: Hoa LIND for Dr. Higgins
Reason for Consultation: AFIB and CHF
Medical History
-
Chief Complaint: light-headed
History of Present Illness:
69 y/o male (patient of Dr. Rowell) with ascending aortic aneurysm s/p repair with resuspension of AV 2021 HUP, dilated cardiomyopathy (most recent EF 45-50% 03/2024), PAF on Eliquis (had PVI, LAAL at time of CT surgery 2021), atrial tachycardia,
mild-moderate AR, HTN, former ETOH/substance abuse per chart, and lung disease with hx bronchitis, PNA, abnormal PFT's-'Mixed ventilatory defect, mild airflow obstruction with a restriction. Moderately decreased gas to change abnormality' per last
pulm note who is here since for the past 2 days prior to coming in, he has felt light-headed, like he's a 'zombie' or 'walking in slow motion'. No syncope. He has also been more SOB than usual especially in the cold, and thinks his weight is up 20
lbs in the past month! He takes lasix PRN, but has been needing it more recently- 2-3 times per week. He also feels his abdomen is more bloated and legs are more swollen. +orthopnea. +chills. +sputum. He is in no distress at the time of my
assessment. Of note, recently treated as OP for his SOB with antibiotics and steroids. Finished about 2 weeks ago.
Past Medical History
Past Medical History: Arrhythmias, CHF, HTN and Other (as above)
Social History
Drug: Other (medical marijuana smoking )
Family History
Family History: CAD (dad [place])
Allergies / Home Medications
Allergy/AdvReac Type Severity Reaction Status Date / Time
Penicillins Allergy Unknown Unknown Verified 01/31/25 00:42
�Medication �Instructions �Recorded �Confirmed �Type
apixaban 5 mg tablet (Eliquis) 5 mg PO BID Blood clot 07/26/18 01/31/25 History
prevention/tx
furosemide 20 mg tablet (Lasix) 20 mg PO DAILY #5 tabs 03/07/24 01/31/25 Rx
losartan 25 mg tablet 25 mg PO DAILY Blood Pressure 04/01/24 01/31/25 History
Held on 04/06/24.
Instructions: Restart when
blood pressure is greater
than 140/90
metoprolol succinate 100 mg 100 mg PO DAILY Blood Pressure 04/01/24 01/31/25 History
tablet,extended release 24 hr
mirtazapine 45 mg tablet 45 mg PO HS 04/01/24 01/31/25 History
carisoprodol 350 mg tablet 350 mg PO TID PRN Muscle spasms #0 04/05/24 01/31/25 Rx
tabs
docusate sodium 100 mg capsule 100 mg PO BID #60 caps 04/05/24 01/31/25 Rx
lorazepam 1 mg tablet 1 mg PO TID PRN ANXIETY #0 tabs 04/05/24 01/31/25 Rx
oxycodone-acetaminophen 5 mg-325 2 tab PO Q4H PRN moderate pain #0 04/05/24 01/31/25 Rx
mg tablet tabs
pantoprazole 40 mg tablet,delayed 40 mg PO DAILY #30 tabs 04/05/24 01/31/25 Rx
release
polyethylene glycol 3350 17 gram 17 g PO DAILY #30 ea 04/05/24 01/31/25 Rx
oral powder packet
cefdinir 300 mg capsule 300 mg PO BID #4 caps 04/06/24 01/31/25 Rx
dofetilide 500 mcg capsule 500 mcg PO Q12 #60 caps 04/06/24 01/31/25 Rx
spironolactone 25 mg tablet 12.5 mg (1/2 x 25 mg) PO DAILY #30 04/06/24 01/31/25 Rx
tabs
dofetilide 500 mcg capsule 500 mcg PO BID 01/31/25 01/31/25 History
(Tikosyn)
Review of Systems
-
All other systems: Negative unless noted (as above in HPI)
Constitutional: Weight Gain and Other (light-headed)
Respiratory: Trouble Breathing
Musculoskeletal: Edema
Physical Exam
Vital Signs
Temp Pulse Resp BP Pulse Ox
97.5 F 64 18 146/93 93
01/31/25 06:25 01/31/25 06:25 01/31/25 06:25 01/31/25 06:25 01/31/25 06:28
Lab Results
01/31/25 01:06
01/31/25 01:06
Troponin I 0.020 ng/ml 01/31/25 01:06
Vbe-V-Lgpvznkcmoy Pept 1300 pg/ml 01/31/25 01:06
Physical Exam
General: Well Developed, Well Nourished and No Apparent Distress
HEENT: Normocephalic and Anicteric
Respiratory: Wheezes (upper R lobe) and Rhonchi (lower R lobe)
Cardiac: Irregular Rhythm (SR with PAC's)
Musculoskeletal: Edema (mild BLE edema)
Skin: Warm and Dry
Neuro: AO x 3
Psych: Calm
Impression / Plan
-
Light-headedness:
-denies syncope. Follow telemetry. Checking echo. Will adjust metoprolol to 50 mg BID rather than 100 mg once daily.
-of note, reviewed EKG with EP since previous EKG was read as LBBB and now currently read as RBBB- EP thinks previous was more non-specific, so while conduction disease is present, not c/w alternating bundles.
SOB:
-worsened recently. He had OP treatment with steroids and abx per patient. Hx lung disease as noted. On steroids. Pulm consulted.
-may be multifactorial with bronchitis and CHF exacerbation (former per primary team, latter as below).
Prxdl-bp-cujixto HFmEF/dilated CM EF 45-50%:
-severe in that he is requiring hospitalization and IV diuresis, which requires intensive monitoring
-he thinks his weight is up 20 lbs over the past month; However weight on 11/14/24 OV was 264 lbs also- which is what he is today. But weight 03/2024 in hospital was about 230 lbs. He thinks dry weight 245 lbs. He has been taking his PRN Lasix about
2-3 times per week as OP. CXR unremarkable. BNP more elevated than previous 1300. Will jimenez SGLT2I.
-on BB/MRA/ARB
-obtain echo
PAF:
-reviewed EKG with EP- appears to be SR with PAC's, RBBB. Tele is similar to this.
-continue dofetilide. Continue metoprolol, with adjustment as noted.
-continue Eliquis for OAC
hx ascending aorta repair:
-monitor over time as OP
HTN:
-monitor with diuresis and med adjustment
Data:
Echo 04/03/24: Rhythm seemed to be in and out of PAT/PAF (110s) and sinus at 90 bpm. Mildly reduced left ventricular systolic function. LV ejection fraction is 45-50% by visual assessment. Severe left atrial enlargement. Mild eccentric mitral
regurgitation. Mild to moderate aortic regurgitation. Compared to previous echo dated 07/04/2016 the aorta has been replaced. PAT/PAF is now seen. LVEF is now mildly depressed. Consider repeating echo after heart rate/rhythm has been controlled for
several months.
Data Reviewed
-
EKG: Tracing Personally Visualized and interpreted (AFIB with RBBB, 66 BPM)
Radiology: Report Reviewed by me (CXR: No acute cardiopulmonary process.)
Medical Tests (Nuc Med, Echo etc): Report Reviewed by me (echo as noted) and Other (no obstructive CAD cath 2021)
Labs: Labs Reviewed by me
[2025-01-31] MEDS: TOPROL XL 100 MG PO (08:01)
[2025-01-31] MEDS: DELTASONE 40 MG PO (08:01)
[2025-01-31] MEDS: ATIVAN 1 MG PO ×3 (08:09→21:03)
[2025-01-31] MEDS: PERCOCET 5/325 2 TABLET PO ×3 (08:09→21:01)
--- NOTE | 2025-01-31 08:21 | W.PN.HOSP.TC ---
Today's Communication/Plan
-
Continue Lasix.
Assessment / Plan
Assessment / Plan
Impression:
69 male history of atrial fibrillation on Eliquis, anemia, chronic pain syndrome with chronic opioid dependence, dilated cardiomyopathy, aortic aneurysm ascending s/p repair presented with shortness of breath and help heart pounding sensation that
has been progressively getting worse over the last couple of days. Recently treated with antibiotics steroids for bacterial lung infection however since coming off of them symptoms have gotten worse. Denies lower extremity swelling and orthopnea.
When I evaluated him he was resting comfortably in bed however telemetry 45 A-fib atrial fibrillation once he awoke his heart rate improved and Been going in and out of atrial fibrillation patient with a heart rate ranging between 60 and 80 on
telemetry.
Assessment/plan:
Acute bronchitis, viral syndrome
Prednisone 40 mg daily
COVID and influenza negative
Maintain SpO? > 90%
Incentive spirometer and Acapella device
Possible obstructive sleep apnea ,pulmonology consulted
Acute on chronic systolic congestive heart failure
Patient presented with shortness of breath.
BNP level is elevated at 1300
Troponin level is 0.020
Recommending Lasix 40 mg IV BID
Daily weight.
Strict I's and O's.
Consulted cardiology.
Echocardiogram on 04/03/2024 shows
Mildly reduced left ventricular systolic function.
LV ejection fraction is 45-50% by visual assessment.
Severe left atrial enlargement.
repeat echo 01/31 shows:
1. Dilated left ventricle (6.9 cm) with inferolateral hypokinesis and LVEF estimated at 50%.
2. Moderate biatrial enlargement.
3. Moderate to perhaps severe mitral regurgitation.
4. Mild to moderate tricuspid regurgitation.
5. Compared to echocardiogram 04/03/2024 mitral regurgitation has increased from mild MR. A ALDA can be considered to evalutate mitral regurgitation if clinically indicated.
Nocturnal bradycardia with improvement when awake
Possible sleep apnea
Outpatient sleep study recommended
Paroxysmal atrial fibrillation
Continue Tikosyn and Eliquis
Telemetry monitoring
2D echocardiogram pending
Maintain potassium > 4 and magnesium > 2
GERD
Continue PPI
Chronic pain syndrome
On Percocet and Carisoprodol
CODE STATUS: Full code
DVT prophylaxis: Eliquis
Diet: Regular diet (patient refused cardiac diet)
Disposition: Continue Lasix
Total time spent on today's encounter was 55 minutes which included time spent in counseling the patient/family regarding diagnosis and treatment plan as listed above, goals of care, and symptom management. Case was discussed with nursing staff,
specialists, and care coordinators/case management. All labs and imaging personally reviewed by me. Remainder the time spent in detailed review of previous records, lab data, imaging, and other medical provider documentation.
Anticipated Discharge: 24 - 48 hours
Subjective/Interval History
-
Date of Service: January 31, 2025
Patient seen and examined at bedside, denies any chest pain , shortness of breath Improved, no abdominal pain, no nausea, no vomiting, no diarrhea or constipation.
Objective Data
-
Labs:
Laboratory Results
01/31/25
01:06
WBC 8.1
Hgb 11.7 L
Hct 35.5 L
Plt Count 178
Sodium 137
Potassium 3.8
Chloride 104
Carbon Dioxide 28
BUN 15
Creatinine 0.9
Glucose 124 H
Calcium 9.0
Total Bilirubin 0.2
AST 17
ALT 12
Alkaline Phosphatase 55
Vital Signs:
Vital Signs
Temp Pulse Resp BP Pulse Ox
97.9 F 73 18 138/92 93
01/31/25 08:02 01/31/25 08:02 01/31/25 08:02 01/31/25 08:02 01/31/25 08:02
Physical Exam
-
General: Well Developed, Well Nourished, No Apparent Distress and Comfortable
HEENT: Normocephalic, Atraumatic, Moist Mucous Membranes, No Ptosis, PERRLA and Nose Appears Normal
Respiratory: Rales, Rhonchi, Crackles and Non Labored Respirations
Cardiac: Regular Rhythm and S1/S2
Breast: Deferred by me
GI: Soft, Nontender, Nondistended and Normal Bowel Sounds
Genito-urinary: No Costovertebral Tender
Musculoskeletal: No Clubbing, No Cyanosis, Edema, Left Upper Extrem and Edema, Right Lower Extrem
Skin: Warm
Neuro: Awake, Alert, Oriented, AO x 3 and No Motor Deficits
Psych: Calm
Data Reviewed
-
Diagnostic Radiology: Image personally visualized and interpreted and Report Reviewed by me
CT Scan: Image personally visualized and interpreted and Report Reviewed by me
Ultrasound: Image personally visualized and interpreted and Report Reviewed by me
MRI: Image personally visualized and interpreted and Report Reviewed by me
Medical Tests (Nuc Med, Echo etc): Image personally visualized and interpreted and Report Reviewed by me
Labs: Labs Reviewed by me
Old Records: Reviewed
--- NOTE | 2025-01-31 10:52 | CON.PUL ---
Consultation
Consultation Request
Date/Time Consultation Requested: 01/31/2025-8 AM
Date/Time Consultation Performed: 01/31/2025-8:30 AM
Requesting Provider: Hospitalist
Performing Provider: Dr. Meehan
Reason for Consultation: Shortness of breath and wheezing
Medical History
-
Chief Complaint: Shortness of breath
History of Present Illness:
69-year-old nonsmoking male with history of suspected asthma, chronic pain syndrome with chronic opioid dependence, aortic aneurysm status post repair, hypertension, psoriasis, previous pneumonia, PAF, cardiomyopathy, atrial fibrillation on
Eliquis, GERD presented with heart pounding sensation will last couple days recently treated for bacterial lung infection with antibiotics- Pulmonary consulted for ongoing wheezing 01/31/25. Overall the patient feels improved. He continues to have
some wheezing, nonproductive cough but denies any chest pain, pleurisy, productive cough, abdominal pains, nausea, or increased leg swelling.
Past Medical History
Past Medical History: None ( PAF/Eliquis. CAD. Dilated cardiomyopathy. CHF. GERD. Aortic aneurysm-ascending/repair. Hypertension. Chronic pain syndrome/chronic opioid dependence.)
Social History
Tobacco: Non-smoker (Except for medical marijuana)
Drug: None
Living: With Family
Occupational Exposures: No known asbestos exposure
Environmental Exposures: No known tuberculosis exposure
Family History
Family History: Reviewed & Not Pertinent
Allergies / Home Medications
Allergies
Allergy/AdvReac Type Severity Reaction Status Date / Time
Penicillins Allergy Unknown Unknown Verified 01/31/25 00:42
Home Medications
�Medication �Instructions �Recorded �Confirmed �Last Taken �Type
apixaban 5 mg tablet (Eliquis) 5 mg PO BID Blood clot 07/26/18 01/31/25 08/30/18 08:00 History
prevention/tx
furosemide 20 mg tablet (Lasix) 20 mg PO DAILY #5 tabs 03/07/24 01/31/25 Unknown Rx
losartan 25 mg tablet 25 mg PO DAILY Blood Pressure 04/01/24 01/31/25 Unknown History
Held on 04/06/24.
Instructions: Restart when
blood pressure is greater
than 140/90
metoprolol succinate 100 mg 100 mg PO DAILY Blood Pressure 04/01/24 01/31/25 Unknown History
tablet,extended release 24 hr
mirtazapine 45 mg tablet 45 mg PO HS 04/01/24 01/31/25 Unknown History
carisoprodol 350 mg tablet 350 mg PO TID PRN Muscle spasms #0 04/05/24 01/31/25 Unknown Rx
tabs
docusate sodium 100 mg capsule 100 mg PO BID #60 caps 04/05/24 01/31/25 Unknown Rx
lorazepam 1 mg tablet 1 mg PO TID PRN ANXIETY #0 tabs 04/05/24 01/31/25 08/30/18 08:00 Rx
oxycodone-acetaminophen 5 mg-325 2 tab PO Q4H PRN moderate pain #0 04/05/24 01/31/25 Unknown Rx
mg tablet tabs
pantoprazole 40 mg tablet,delayed 40 mg PO DAILY #30 tabs 04/05/24 01/31/25 Unknown Rx
release
polyethylene glycol 3350 17 gram 17 g PO DAILY #30 ea 04/05/24 01/31/25 Unknown Rx
oral powder packet
cefdinir 300 mg capsule 300 mg PO BID #4 caps 04/06/24 01/31/25 Unknown Rx
dofetilide 500 mcg capsule 500 mcg PO Q12 #60 caps 04/06/24 01/31/25 Unknown Rx
spironolactone 25 mg tablet 12.5 mg (1/2 x 25 mg) PO DAILY #30 04/06/24 01/31/25 Unknown Rx
tabs
dofetilide 500 mcg capsule 500 mcg PO BID 01/31/25 01/31/25 Unknown History
(Tikosyn)
Review of Systems
-
Unable to Obtain full review of systems at this time due to: Other ( per HPI)
Vitals / Labs / Diagnostic Testing
Vital Signs
Temp Pulse Resp BP Pulse Ox
97.9 F 73 18 138/92 93
01/31/25 08:02 01/31/25 08:02 01/31/25 08:02 01/31/25 08:02 01/31/25 08:02
Lab Data
01/31/25 01:06
01/31/25 01:06
Microbiology
01/31/25 04:49 Nasal Swab Influenza Types A & B (CASSIUS) - Final
Negative for Influenza A & B, NAAT
Negative results must be combined with clinical observations
and patient history.
Nucleic Acid Amplification test (NAAT)performed on the
[employer] platform.
Diagnostic Testing:
Physical Exam
-
Exam:
Well-nourished and well-developed in no apparent distress
HEENT-atraumatic, normocephalic
Neck-supple, no JVD, no bruit
Heart-regular rate and rhythm-no murmurs, rubs or gallops
Chest with diminished breath sounds, prolonged expiratory time and expiratory wheezes and no crackles
Back-no tenderness
Abdomen-soft, nontender, nondistended, no hepatosplenomegaly
Extremities-no cyanosis, clubbing, edema and good peripheral pulses
Integument-intact, no rashes, lesions or ecchymosis
Neurology-alert and oriented, nonfocal motor and sensory exam
Assessment
-
69-year-old nonsmoking male with history of suspected asthma, chronic pain syndrome with chronic opioid dependence, aortic aneurysm status post repair, hypertension, psoriasis, previous pneumonia, PAF, cardiomyopathy, atrial fibrillation on
Eliquis, GERD presented with heart pounding sensation will last couple days recently treated for bacterial lung infection with antibiotics- Pulmonary consulted for ongoing wheezing 01/31/25.
Acute bronchitis.
Acute on top of chronic systolic CHF.
Asthma with mild acute exacerbation,-eosinophils 300
Mild lspbrv-bujwfldptz-xoiyptxums 11.7
Mild hyperglycemia
Conditions present prior to admission:
PAF/Eliquis.
CAD.
Dilated cardiomyopathy. .
Moderate mitral regurgitation
CHF.
GERD.
Aortic aneurysm-ascending/repair-2021
Hypertension.
Chronic pain syndrome/chronic opioid dependence.
Plan
Acute decompensation likely related to viral upper respiratory tract infection and acute on top of chronic CHF.
Supplemental oxygen as needed.
Assessment strep supplemental oxygen needs prior to discharge.
Nebulizers if needed-mild bronchospasm at this time.
Prednisone 40 mg daily with slow taper.
Mucolytic excessive needed.
Diuresis as tolerated.
Monitor intake, output, renal function, lower extremity edema and weight
Cardiology following-correspondence reviewed.
Follow hemoglobin.
Monitor blood sugar.
Insulin supplementation if needed.
DVT prophylaxis-on Eliquis
GI prophylaxis-on pantoprazole.
Nutrition
Early mobilization
Obstructive sleep apnea also suspected-recommend outpatient workup-had episodes of nocturnal bradycardia
The patient last saw Dr. Fortune 06/23/21 and again 08/31/24 and most recently saw nurse practitioner Maya Cuenca 09/29/24-canceled 12/07/24, appointment
Diagnostic data:
Chest x-ray 01/31/25-NAD
CT chest 07/2024,Report reviewed Gomez López 08/31/2024 04:48:31 PM EDT >Bibasilar increasedinterstitial changes with minimal groundglass opacity.� Bronchial thickening.No evidence for consolidations�lung nodules.� No pleural effusion.
PFT 09/29/24- FVC 4.90 or 88%, FEv1 2.80 or 68%< Ratio 57. TLC 09/06 or 85%< DLCO 18.01 or 55%. DLCO/VA 65%
6 minute walk testing: ( 08/31/2024 )Pulse ox at rest on room air:95%Lowest oxygen saturation:98%Dyspnea scale: 2/10Heart rate at rest,59Maximum heart rate:76Walk distance:1050 feetOxygen requirements:0
Echocardiogram 01/31/25-EF 50%, moderate to severe mitral regurgitation, moderate biatrial enlargement
Data Reviewed
-
EKG: Report reviewed by me
Radiology: Report reviewed by me
CT Scan: Report reviewed by me
Medical Tests (Nuc Med, Echo etc): Report reviewed by me
Labs: Labs reviewed by me
Old Records: Reviewed
Total Time Spent with Patient (in minutes): 55
--- NOTE | 2025-01-31 16:13 | CM ---
Patient seen at bedside on . Patient lives with his in a 2 story home. Patient has had [facility] in the past and been to [facility]. Patient plan is for discharge home with no needs. Patient has a walker and a cane at home. Patient PCP
is Dr. Brian and he uses the [facility] in [place]. Patient physician asked about cost for Farxiga and Jardiance. Per [facility] both cost 20$ CM updated patient. Patient with many questions, CM sent tt to [facility] with update. CM will continue to follow for
discharge planning needs.
Plan;home with no needs vs home with Vn
[2025-01-31] MEDS: REMERON 45 MG PO (21:00)
[2025-02-01 03:33] VITALS: BP 137/73
[2025-02-01 07:48] LABS: Hematocrit 36.4 % (39.0-52.0); Hemoglobin 12.1 g/dL (13.0-18.0); Mean Corp Hgb Conc. 33.2 g/dL (33.0-37.0); Mean Corpuscular Volume 87.9 fL (80.0-94.0); Platelet Count 180 10^3/uL (130-400); Red Cell Dist. Width 13.2 % (11.5-14.5)
[2025-02-01 08:00] VITALS: BP 166/92
[2025-02-01 08:04] VITALS: BMI 29.0
--- NOTE | 2025-02-01 08:08 | W.PN.CD ---
Addendum entered and electronically signed by Angelique Rowell MD 02/01/25 09:58:
lungs exam error below he has rhonchi in right lung h[place]josa.
Original Note:
Today's Communication / Plan
-
continue IV diuresis
add farxiga
need to establish 'dry weight'.
Impression / Plan
-
Light-headedness:
-denies syncope. Follow telemetry. Checking echo. Will adjust metoprolol to 50 mg BID rather than 100 mg once daily.
-of note, reviewed EKG with EP since previous EKG was read as LBBB and now currently read as RBBB- EP thinks previous was more non-specific, so while conduction disease is present, not c/w alternating bundles.
SOB:
-worsened recently. He had OP treatment with steroids and abx per patient. Hx lung disease as noted. On steroids. Pulm consulted.
-pulmonary started steroids
-may be multifactorial with bronchitis and CHF exacerbation (former per primary team, latter as below).
Tktjk-xs-rgysarb HFmEF/dilated CM EF 45-50%-->EF no 50% LV dilated, Mod-sever MR noted, on my review more c/w moderate. Can reeval as op.
-severe in that he is requiring hospitalization and IV diuresis, which requires intensive monitoring
-not sure what to make of weights, lets keep diuresing
-hasn't tolerated Entresto in op setting
-will add Farxiga
-on BB/MRA/ARB
PAF:
-reviewed EKG with EP- appears to be SR with PAC's, RBBB. Tele is similar to this.
-continue dofetilide. Continue metoprolol, with adjustment as noted.
-continue Eliquis for OAC
hx ascending aorta repair:
-monitor over time as OP
HTN:
-monitor with diuresis and med adjustment
Data:
ECHO 02/01/25: 1. Dilated left ventricle (6.9 cm) with inferolateral hypokinesis and LVEF estimated at 50%.
2. Moderate biatrial enlargement.
3. Moderate to perhaps severe mitral regurgitation.
4. Mild to moderate tricuspid regurgitation.
5. Compared to echocardiogram 04/03/2024 mitral regurgitation has increased from mild MR. A ALDA can be considered to evaluate mitral regurgitation if clinically indicated.
-
Echo 04/03/24: Rhythm seemed to be in and out of PAT/PAF (110s) and sinus at 90 bpm. Mildly reduced left ventricular systolic function. LV ejection fraction is 45-50% by visual assessment. Severe left atrial enlargement. Mild eccentric mitral
regurgitation. Mild to moderate aortic regurgitation. Compared to previous echo dated 07/04/2016 the aorta has been replaced. PAT/PAF is now seen. LVEF is now mildly depressed. Consider repeating echo after heart rate/rhythm has been controlled for
several months.
Physical Exam
Vital Signs/Labs
Vital Signs
Temp Pulse Resp BP Pulse Ox
98.2 F 71 19 137/73 95
02/01/25 03:33 02/01/25 03:33 02/01/25 03:33 02/01/25 03:33 02/01/25 03:33
01/31/25 02/01/25 02/02/25
06:59 06:59 06:59
Actual Weight 264 lb 1.6 oz 251 lb
02/01/25 07:36
01/31/25
01:06
Cvj-R-Mrttwlzkecd Pept 1300
LAB Results
01/31/25
01:06
Troponin I 0.020
Physical Exam
Constitutional: No acute distress
Cardiovascular: Rhythm & rate is regular, Pedal edema is absent and Systolic murmur present
Respiratory: Respiratory effort normal, Lungs clear to auscul., Wheeze Absent, Crackles Absent and Rhonchi Absent
Neuro/Psych: AO x 3
Data Reviewed
-
Date of Service: February 01, 2025
Medical Decision Making: Review of Case with other Provider (Nurse Marcus give iv diuresis)
EKG: Other (Sinus with pacs on tele)
[2025-02-01 08:22] LABS: Blood Urea Nitrogen 21 mg/dl (9-20); Calcium 9.6 mg/dl (8.4-10.2); Carbon Dioxide 30 mmol/L (22-30); Chloride 102 mmol/L (98-107); Estimated Creatinine Clearance 100 ml/min; Glucose 99 mg/dl (70-99); Potassium 3.4 mmol/L (3.5-5.1); Sodium 138 mmol/L (135-145); eGFR > 60.00
[2025-02-01] MEDS: PROTONIX 40 MG PO (08:56)
[2025-02-01] MEDS: ELIQUIS 5 MG PO ×2 (08:57→20:27)
[2025-02-01] MEDS: ALDACTONE 12.5 MG PO (08:57)
[2025-02-01] MEDS: COZAAR 25 MG PO (08:57)
[2025-02-01] MEDS: TOPROL XL 50 MG PO ×2 (08:57→20:27)
[2025-02-01] MEDS: VITAMIN B1 100 MG PO (08:57)
[2025-02-01] MEDS: TIKOSYN 500 MCG PO ×2 (08:57→20:27)
[2025-02-01] MEDS: DELTASONE 40 MG PO (08:57)
[2025-02-01] MEDS: FOLVITE 1 MG PO (08:57)
[2025-02-01] MEDS: KCL 40 MEQ PO (08:59)
[2025-02-01] MEDS: LASIX 40 MG IV ×2 (08:59→15:00)
[2025-02-01] MEDS: PERCOCET 5/325 2 TABLET PO ×3 (09:17→20:26)
[2025-02-01] MEDS: ATIVAN 1 MG PO ×3 (09:17→21:46)
[2025-02-01] MEDS: FARXIGA 10 MG PO (10:16)
[2025-02-01 10:37] LABS: TSH 1.53 uIU/ml (0.47-4.68)
--- NOTE | 2025-02-01 10:37 | W.PN.PUL.V3 ---
Today's Communication / Plan
-
Wean oxygen.
Increased activity.
Diuresis.
Prednisone taper
Assessment
-
69-year-old nonsmoking male with history of suspected asthma, chronic pain syndrome with chronic opioid dependence, aortic aneurysm status post repair, hypertension, psoriasis, previous pneumonia, PAF, cardiomyopathy, atrial fibrillation on
Eliquis, GERD presented with heart pounding sensation will last couple days recently treated for bacterial lung infection with antibiotics- Pulmonary consulted for ongoing wheezing 01/31/25.
Acute bronchitis.
Acute on top of chronic systolic CHF.
Asthma with mild acute exacerbation,-eosinophils 300
Mild cdebtg-fqfguwrsmk-fpmfkxsiqx 11.7
Mild hyperglycemia
BRANDON suspected.
Nocturnal bradycardia
Conditions present prior to admission:
PAF/Eliquis.
CAD.
Dilated cardiomyopathy.
Moderate mitral regurgitation
CHF.
GERD.
Aortic aneurysm-ascending/repair-2021
Hypertension.
Chronic pain syndrome/chronic opioid dependence.
Plan
Acute decompensation likely related to viral upper respiratory tract infection and acute on top of chronic CHF.
Supplemental oxygen as needed.
Assessment strep supplemental oxygen needs prior to discharge.
Nebulizers if needed-mild bronchospasm at this time.
Prednisone 40 mg daily with slow taper.
Mucolytic excessive needed..
Bedside spirometry 01/31/25-FEV1 2 L-49%, FVC 4.16 L-75%, no significant response to bronchodilator. Moderate obstruction.
Diuresis continues as tolerated.
Monitor intake, output, renal function, lower extremity edema and weight
Cardiology following-correspondence reviewed.
Echocardiogram pending
Follow hemoglobin.
Monitor blood sugar.
Insulin supplementation if needed.
DVT prophylaxis-on Eliquis
GI prophylaxis-on pantoprazole.
Nutrition
Early mobilization
Obstructive sleep apnea also suspected-recommend outpatient workup-had episodes of nocturnal bradycardia
The patient last saw Dr. Fortune 06/23/21 and again 08/31/24 and most recently saw nurse practitioner Maya Cuenca 09/29/24-canceled 12/07/24, appointment
Diagnostic data:
Chest x-ray 01/31/25-NAD
CT chest 07/2024,Report reviewed Gomez López 08/31/2024 04:48:31 PM EDT >Bibasilar increasedinterstitial changes with minimal groundglass opacity.� Bronchial thickening.No evidence for consolidations�lung nodules.� No pleural effusion.
PFT 09/29/24- FVC 4.90 or 88%, FEv1 2.80 or 68%< Ratio 57. TLC 09/06 or 85%< DLCO 18.01 or 55%. DLCO/VA 65%
6 minute walk testing: ( 08/31/2024 )Pulse ox at rest on room air:95%Lowest oxygen saturation:98%Dyspnea scale: 2/10Heart rate at rest,59Maximum heart rate:76Walk distance:1050 feetOxygen requirements:0
Echocardiogram 01/31/25-EF 50%, moderate to severe mitral regurgitation, moderate biatrial enlargement
Subjective Data
-
Date of Service:
Date of Service: February 01, 2025
Chief Complaint: Pulmonary Follow Up and Dyspnea Follow Up
Subjective:
Feels better, less short of breath, still has some mucus, postnasal drip, no chest pain
Review of Systems
General: Other ( or HPI)
Objective Data
Data Reviewed
Vital Signs / I&O:
Vital Signs
Temp Pulse Resp BP Pulse Ox
97.6 F 64 16 166/92 93
02/01/25 08:00 02/01/25 08:00 02/01/25 08:00 02/01/25 08:00 02/01/25 08:00
Intake and Output
01/31/25 02/01/25 02/02/25
06:59 06:59 06:59
Intake Total 1540 / 1540
Output Total 1100 / 1100
Balance 440 / 440
SaO2: 93
Physical Exam
General: Respiratory Distress (n) and Comfortable
HEENT: Normocephalic, Anicteric and Moist Mucous Membranes
Cardiovascular: Regular Rhythm
Respiratory: Wheeze (n), Crackles, Rhonchi (n), Non-Labored Respirations, Accessory Resp Muscle Use (n) and Stridor (n)
GI: Soft, Non Distended and Non Tender
Neurology: Awake, Alert and No Motor Deficits
Skin: Warm, Good Color, Cyanosis, Jaundice (n) and Rash (n)
Labs/Micro/Reports
Lab Data
02/01/25 07:36
02/01/25 07:36
Microbiology
01/31/25 04:49 Nasal Swab Influenza Types A & B (CASSIUS) - Final
Negative for Influenza A & B, NAAT
Negative results must be combined with clinical observations
and patient history.
Nucleic Acid Amplification test (NAAT)performed on the
[employer] platform.
--- NOTE | 2025-02-01 10:50 | W.PN.HOSP.TC ---
Today's Communication/Plan
-
Continue Lasix iv-
Assessment / Plan
Assessment / Plan
Impression:
69 male history of atrial fibrillation on Eliquis, anemia, chronic pain syndrome with chronic opioid dependence, dilated cardiomyopathy, aortic aneurysm ascending s/p repair presented with shortness of breath and help heart pounding sensation that
has been progressively getting worse over the last couple of days. Recently treated with antibiotics steroids for bacterial lung infection however since coming off of them symptoms have gotten worse. Denies lower extremity swelling and orthopnea.
When I evaluated him he was resting comfortably in bed however telemetry 45 A-fib atrial fibrillation once he awoke his heart rate improved and Been going in and out of atrial fibrillation patient with a heart rate ranging between 60 and 80 on
telemetry.
Improved shortness of breath with IV Lasix.
repeat echo 01/31 shows:
1. Dilated left ventricle (6.9 cm) with inferolateral hypokinesis and LVEF estimated at 50%.
2. Moderate biatrial enlargement.
3. Moderate to perhaps severe mitral regurgitation.
4. Mild to moderate tricuspid regurgitation.
5. Compared to echocardiogram 04/03/2024 mitral regurgitation has increased from mild MR. A ALDA can be considered to evalutate mitral regurgitation if clinically indicated.
Cardiology added
Assessment/plan:
Acute bronchitis, viral syndrome
Prednisone 40 mg daily
COVID and influenza negative
Maintain SpO? > 90%
Incentive spirometer and Acapella device
Possible obstructive sleep apnea ,pulmonology consulted
Acute on chronic systolic congestive heart failure
Patient presented with shortness of breath.
BNP level is elevated at 1300
Troponin level is 0.020
Recommending Lasix 40 mg IV BID
Daily weight.
Strict I's and O's.
Consulted cardiology.
Echocardiogram on 04/03/2024 shows
Mildly reduced left ventricular systolic function.
LV ejection fraction is 45-50% by visual assessment.
Severe left atrial enlargement.
repeat echo 01/31 shows:
1. Dilated left ventricle (6.9 cm) with inferolateral hypokinesis and LVEF estimated at 50%.
2. Moderate biatrial enlargement.
3. Moderate to perhaps severe mitral regurgitation.
4. Mild to moderate tricuspid regurgitation.
5. Compared to echocardiogram 04/03/2024 mitral regurgitation has increased from mild MR. A ALDA can be considered to evalutate mitral regurgitation if clinically indicated.
Cardiology added farxiga
Nocturnal bradycardia with improvement when awake
Possible sleep apnea
Outpatient sleep study recommended
Paroxysmal atrial fibrillation
Continue Tikosyn and Eliquis
Telemetry monitoring
2D echocardiogram pending
Maintain potassium > 4 and magnesium > 2
GERD
Continue PPI
Chronic pain syndrome
On Percocet and Carisoprodol
CODE STATUS: Full code
DVT prophylaxis: Eliquis
Diet: Regular diet (patient refused cardiac diet)
Disposition: Continue Lasix iv- farxiga
Total time spent on today's encounter was 55 minutes which included time spent in counseling the patient/family regarding diagnosis and treatment plan as listed above, goals of care, and symptom management. Case was discussed with nursing staff,
specialists, and care coordinators/case management. All labs and imaging personally reviewed by me. Remainder the time spent in detailed review of previous records, lab data, imaging, and other medical provider documentation.
Anticipated Discharge: Within 24 hours
Subjective/Interval History
-
Date of Service: February 01, 2025
Patient seen and examined at bedside, denies any chest pain , shortness of breath Improved, no abdominal pain, no nausea, no vomiting, no diarrhea or constipation.
lower extremity edema improved.
Objective Data
-
Labs:
Laboratory Results
02/01/25
07:36
WBC 9.3
Hgb 12.1 L
Hct 36.4 L
Plt Count 180
Sodium 138
Potassium 3.4 L
Chloride 102
Carbon Dioxide 30
BUN 21 H
Creatinine 0.9
Glucose 99
Calcium 9.6
Vital Signs:
Vital Signs
Temp Pulse Resp BP Pulse Ox
97.6 F 64 16 166/92 93
02/01/25 08:00 02/01/25 08:00 02/01/25 08:00 02/01/25 08:00 02/01/25 10:37
I&O
01/31/25 02/01/25 02/02/25
06:59 06:59 06:59
Intake Total 1540 / 1540
Output Total 1100 / 1100
Balance 440 / 440
Physical Exam
-
General: Well Developed, Well Nourished, No Apparent Distress and Comfortable
HEENT: Normocephalic, Atraumatic, Moist Mucous Membranes, No Ptosis, PERRLA and Nose Appears Normal
Respiratory: Rales, Rhonchi, Crackles and Non Labored Respirations
Cardiac: Regular Rhythm and S1/S2
Breast: Deferred by me
GI: Soft, Nontender, Nondistended and Normal Bowel Sounds
Genito-urinary: No Costovertebral Tender
Musculoskeletal: No Clubbing, No Cyanosis, Edema, Left Upper Extrem and Edema, Right Lower Extrem
Skin: Warm
Neuro: Awake, Alert, Oriented, AO x 3 and No Motor Deficits
Psych: Calm
[2025-02-01 10:56] LABS: Vitamin B12 312 pg/ml (239-931)
[2025-02-01 11:00] VITALS: BP 132/79
[2025-02-01 11:41] VITALS: BMI 29.0
[2025-02-01 15:00] VITALS: BP 153/79
[2025-02-01] MEDS: SYMBICORT 80/4.5 MCG INHALER 2 PUFF INH (18:04)
[2025-02-01] MEDS: SPIRIVA RESPIMAT 2.5 MCG 2 PUFF INH (18:04)
[2025-02-01 19:21] VITALS: BP 144/93
[2025-02-01] MEDS: REMERON 45 MG PO (21:46)
[2025-02-01 23:26] VITALS: BP 150/94
[2025-02-02 03:20] VITALS: BP 144/90
[2025-02-02 05:21] VITALS: BMI 28.7
[2025-02-02] MEDS: SYMBICORT 80/4.5 MCG INHALER 2 PUFF INH (07:41)
[2025-02-02] MEDS: SPIRIVA RESPIMAT 2.5 MCG 2 PUFF INH (07:41)
[2025-02-02 07:57] VITALS: BP 147/86
--- NOTE | 2025-02-02 08:08 | W.PN.CD ---
Today's Communication / Plan
-
- Patient has lost 10 kg this admission and states that he is his 's caregiver, so he would like to be discharged to take care of her with the upcoming winter storm.
- Patient was not taking Lasix daily at home.
- Blood pressure remains mildly elevated; will increase losartan to 50 mg daily and spironolactone to 25 mg daily.
- Recommend discharging on the following CHF medications:
- Lasix 40 mg daily.
- Toprol-XL 50 mg twice daily.
- Losartan 50 mg daily.
- Spironolactone 25 mg daily.
- Farxiga 10 mg daily.
Impression / Plan
-
69 y/o male (patient of Dr. Rowell) with ascending aortic aneurysm s/p repair with resuspension of AV 2021 HUP, dilated cardiomyopathy (most recent EF 45-50% 03/2024), PAF on Eliquis (had PVI, LAAL at time of CT surgery 2021), atrial tachycardia,
mild-moderate AR, HTN, former ETOH/substance abuse per chart, and lung disease with hx bronchitis, PNA, abnormal PFT's-'Mixed ventilatory defect, mild airflow obstruction with a restriction.
Aeqgz-kq-xouayro HFmEF/dilated CM (EF 50%):
- Echocardiogram this admission with EF of 50%, LV dilated, Mod-sever MR noted; continue to manage as outpatient.
- Patient has lost 10 kg this admission and states that he is his 's caregiver, so he would like to be discharged to take care of her with the upcoming winter.
- Patient was not taking Lasix daily at home.
- Recommend discharging on the following CHF medications:
- Lasix 40 mg daily.
- Toprol-XL 50 mg twice daily.
- Losartan 50 mg daily.
- Spironolactone 25 mg daily.
- Farxiga 10 mg daily.
Light-headedness:
- Etiology unclear; patient previously had vertigo, and this could possibly be it.
- Of note, reviewed EKG with EP since previous EKG was read as LBBB and now currently read as RBBB- EP thinks previous was more non-specific, so while conduction disease is present, not c/w alternating bundles.
SOB:
-worsened recently. He had OP treatment with steroids and abx per patient. Hx lung disease as noted. On steroids. Pulm consulted.
-On steroids as recommended by Pulmonary.
-may be multifactorial with bronchitis and CHF exacerbation (former per primary team, latter as below).
PAF:
-reviewed EKG with EP- appears to be SR with PAC's, RBBB. Tele is similar to this.
-continue dofetilide. Continue metoprolol, with adjustment as noted.
-continue Eliquis for OAC
hx ascending aorta repair:
- Currently stable; continue to monitor as outpatient.
HTN:
-monitor with diuresis and med adjustment
- Blood pressure remains mildly elevated; will increase losartan to 50 mg daily and spironolactone to 25 mg daily.
Data:
ECHO 02/01/25: 1. Dilated left ventricle (6.9 cm) with inferolateral hypokinesis and LVEF estimated at 50%.
2. Moderate biatrial enlargement.
3. Moderate to perhaps severe mitral regurgitation.
4. Mild to moderate tricuspid regurgitation.
5. Compared to echocardiogram 04/03/2024 mitral regurgitation has increased from mild MR. A ALDA can be considered to evaluate mitral regurgitation if clinically indicated.
-
Echo 04/03/24: Rhythm seemed to be in and out of PAT/PAF (110s) and sinus at 90 bpm. Mildly reduced left ventricular systolic function. LV ejection fraction is 45-50% by visual assessment. Severe left atrial enlargement. Mild eccentric mitral
regurgitation. Mild to moderate aortic regurgitation. Compared to previous echo dated 07/04/2016 the aorta has been replaced. PAT/PAF is now seen. LVEF is now mildly depressed. Consider repeating echo after heart rate/rhythm has been controlled for
several months.
Physical Exam
Vital Signs/Labs
Vital Signs
Temp Pulse Resp BP Pulse Ox
98.1 F 60 16 147/86 92
02/02/25 07:57 02/02/25 07:57 02/02/25 07:57 02/02/25 07:57 02/02/25 07:57
02/01/25 02/02/25 02/03/25
06:59 06:59 06:59
Actual Weight 112.808 kg
TSH 1.53 uIU/ml (0.47-4.68) 02/01/25 07:36
01/31/25
01:06
Goh-I-Jjrkvbjlwpw Pept 1300
LAB Results
01/31/25
01:06
Troponin I 0.020
Physical Exam
Constitutional: No acute distress and Comfortable
EENT: Anicteric
Cardiovascular: Rhythm & rate is regular, Pedal edema is absent, Systolic murmur present (2/6) and S1S2 is normal
Respiratory: Respiratory effort normal and Rhonchi Present
GI: Soft
Neuro/Psych: AO x 3
Other: Skin (Warm, dry, intact)
Data Reviewed
-
Date of Service: February 02, 2025
EKG: Tracing Personally Visualized and interpreted (Telemetry: Sinus rhythm, PACs)
Medical Tests (PFT, Pathology etc): Discussed with Patient
Labs: Labs Reviewed by me
[2025-02-02] MEDS: VITAMIN B1 100 MG PO (08:22)
[2025-02-02] MEDS: TIKOSYN 500 MCG PO (08:22)
[2025-02-02] MEDS: PROTONIX 40 MG PO (08:22)
[2025-02-02] MEDS: FARXIGA 10 MG PO (08:22)
[2025-02-02] MEDS: ELIQUIS 5 MG PO (08:23)
[2025-02-02] MEDS: FOLVITE 1 MG PO (08:23)
[2025-02-02] MEDS: ALDACTONE 25 MG PO (08:23)
[2025-02-02] MEDS: TOPROL XL 50 MG PO (08:24)
[2025-02-02] MEDS: LASIX 40 MG IV (08:24)
[2025-02-02] MEDS: DELTASONE 40 MG PO (08:24)
[2025-02-02] MEDS: COZAAR 50 MG PO (08:26)
[2025-02-02] MEDS: PERCOCET 5/325 2 TABLET PO ×2 (08:32→13:22)
[2025-02-02] MEDS: ATIVAN 1 MG PO ×2 (08:33→13:21)
[2025-02-02] MEDS: ALDACTONE PO (08:38)
[2025-02-02] MEDS: COZAAR PO (08:39)
[2025-02-02 08:56] LABS: Hematocrit 40.2 % (39.0-52.0); Hemoglobin 13.6 g/dL (13.0-18.0); Mean Corp Hgb Conc. 33.8 g/dL (33.0-37.0); Mean Corpuscular Volume 85.4 fL (80.0-94.0); Platelet Count 215 10^3/uL (130-400); Red Cell Dist. Width 13.2 % (11.5-14.5)
[2025-02-02 09:26] LABS: Blood Urea Nitrogen 24 mg/dl (9-20); Calcium 9.4 mg/dl (8.4-10.2); Carbon Dioxide 28 mmol/L (22-30); Chloride 99 mmol/L (98-107); Estimated Creatinine Clearance 90 ml/min; Glucose 99 mg/dl (70-99); Potassium 3.5 mmol/L (3.5-5.1); Sodium 137 mmol/L (135-145); eGFR > 60.00
--- NOTE | 2025-02-02 10:23 | W.PN.PUL.V3 ---
Today's Communication / Plan
-
Diuresis per primary service
Wean oxygen
Increase activity
Prednisone taper
Continue inhalers and nebulizers as needed
Outpatient pulmonary follow-up
Pulmonary will sign off-please call with questions
Assessment
-
69-year-old nonsmoking male with history of suspected asthma, chronic pain syndrome with chronic opioid dependence, aortic aneurysm status post repair, hypertension, psoriasis, previous pneumonia, PAF, cardiomyopathy, atrial fibrillation on
Eliquis, GERD presented with heart pounding sensation will last couple days recently treated for bacterial lung infection with antibiotics- Pulmonary consulted for ongoing wheezing 01/31/25.
Acute bronchitis.
Acute on top of chronic systolic CHF.
Asthma with mild acute exacerbation,-eosinophils 300
Mild vehzkf-onkjzqsirv-lhrizujztv 11.7
Mild hyperglycemia
BRANDON suspected.
Nocturnal bradycardia
Conditions present prior to admission:
PAF/Eliquis.
CAD.
Dilated cardiomyopathy.
Moderate-severe mitral regurgitation
CHF.
GERD.
Aortic aneurysm-ascending/repair-2021
Hypertension.
Chronic pain syndrome/chronic opioid dependence.
Plan
Acute decompensation likely related to viral upper respiratory tract infection and acute on top of chronic CHF.
Supplemental oxygen as needed-currently on room air
Assessment strep supplemental oxygen needs prior to discharge.
Nebulizers if needed-mild bronchospasm at this time.
Prednisone 40 mg daily with slow taper.
Mucolytic excessive needed
Bedside spirometry 01/31/25-FEV1 2 L-49%, FVC 4.16 L-75%, no significant response to bronchodilator. Moderate obstruction.
Diuresis continues as tolerated.
Monitor intake, output, renal function, lower extremity edema and weight
Cardiology following-correspondence reviewed.
Echocardiogram 02/01/2025-EF 50%, severe mitral regurgitation
Follow hemoglobin-stable at 13.6
Monitor blood sugar.
Insulin supplementation if needed.
DVT prophylaxis-on Eliquis
GI prophylaxis-on pantoprazole.
Nutrition
Early mobilization
Obstructive sleep apnea also suspected-recommend outpatient workup-had episodes of nocturnal bradycardia
Respiratory status stable-wean prednisone, nebulizers as needed-pulmonary will sign please call with questions
The patient last saw Dr. Fortune 06/23/21 and again 08/31/24 and most recently saw nurse practitioner Maya Cuenca 09/29/24-canceled 12/07/24, appointment
Diagnostic data:
Chest x-ray 01/31/25-NAD
CT chest 07/2024,Report reviewed Gomez López 08/31/2024 04:48:31 PM EDT >Bibasilar increasedinterstitial changes with minimal groundglass opacity.� Bronchial thickening.No evidence for consolidations�lung nodules.� No pleural effusion.
PFT 09/29/24- FVC 4.90 or 88%, FEv1 2.80 or 68%< Ratio 57. TLC 09/06 or 85%< DLCO 18.01 or 55%. DLCO/VA 65%
6 minute walk testing: ( 08/31/2024 )Pulse ox at rest on room air:95%Lowest oxygen saturation:98%Dyspnea scale: 2/10Heart rate at rest,59Maximum heart rate:76Walk distance:1050 feetOxygen requirements:0
Echocardiogram 01/31/25-EF 50%, moderate to severe mitral regurgitation, moderate biatrial enlargement
Subjective Data
-
Date of Service:
Date of Service: February 02, 2025
Chief Complaint: Pulmonary Follow Up and Dyspnea Follow Up
Subjective:
Feels better, less congestion, no shortness of breath, chest pain, wheeze
Review of Systems
General: Other (Per HPI)
Objective Data
Data Reviewed
Vital Signs / I&O:
Vital Signs
Temp Pulse Resp BP Pulse Ox
98.1 F 60 16 147/86 92
02/02/25 07:57 02/02/25 08:24 02/02/25 07:57 02/02/25 08:24 02/02/25 07:57
Intake and Output
02/01/25 02/02/25 02/03/25
06:59 06:59 06:59
Intake Total 1540 / 1540 1104 / 1104
Output Total 1100 / 1100 2700 / 2700
Balance 440 / 440 -1596 / -1596
SaO2: 92
Physical Exam
General: Respiratory Distress (n) and Comfortable
HEENT: Normocephalic, Anicteric and Moist Mucous Membranes
Cardiovascular: Regular Rhythm
Respiratory: Wheeze (n), Crackles, Rhonchi (n), Non-Labored Respirations, Accessory Resp Muscle Use (n) and Stridor (n)
GI: Soft, Non Distended and Non Tender
Neurology: Awake, Alert and No Motor Deficits
Skin: Warm, Good Color, Cyanosis, Jaundice (n) and Rash (n)
Labs/Micro/Reports
Lab Data
02/02/25 08:37
02/02/25 08:37
Microbiology
01/31/25 04:49 Nasal Swab Influenza Types A & B (CASSIUS) - Final
Negative for Influenza A & B, NAAT
Negative results must be combined with clinical observations
and patient history.
Nucleic Acid Amplification test (NAAT)performed on the
[employer] platform.
[2025-02-02 11:13] VITALS: BP 119/74
--- NOTE | 2025-02-02 11:16 | W.PN.HOSP.TC ---
Today's Communication/Plan
-
Discharge home today
Assessment / Plan
Assessment / Plan
Impression:
69 male history of atrial fibrillation on Eliquis, anemia, chronic pain syndrome with chronic opioid dependence, dilated cardiomyopathy, aortic aneurysm ascending s/p repair presented with shortness of breath and help heart pounding sensation that
has been progressively getting worse over the last couple of days. Recently treated with antibiotics steroids for bacterial lung infection however since coming off of them symptoms have gotten worse. Denies lower extremity swelling and orthopnea.
When I evaluated him he was resting comfortably in bed however telemetry 45 A-fib atrial fibrillation once he awoke his heart rate improved and Been going in and out of atrial fibrillation patient with a heart rate ranging between 60 and 80 on
telemetry.
Improved shortness of breath with IV Lasix.
repeat echo 01/31 shows:
1. Dilated left ventricle (6.9 cm) with inferolateral hypokinesis and LVEF estimated at 50%.
2. Moderate biatrial enlargement.
3. Moderate to perhaps severe mitral regurgitation.
4. Mild to moderate tricuspid regurgitation.
5. Compared to echocardiogram 04/03/2024 mitral regurgitation has increased from mild MR. A ALDA can be considered to evalutate mitral regurgitation if clinically indicated.
Cardiology added farxiga
Cardio recommending discharge on Lasix/Toprol-XL/losartan/spironolactone/farxiga
Will be discharged on prednisone taper.
Assessment/plan:
Acute bronchitis, viral syndrome
Prednisone 40 mg daily
COVID and influenza negative
Maintain SpO? > 90%
Incentive spirometer and Acapella device
Possible obstructive sleep apnea ,pulmonology consulted
Discharge on prednisone taper
Acute on chronic systolic congestive heart failure
Patient presented with shortness of breath.
BNP level is elevated at 1300
Troponin level is 0.020
Recommending Lasix 40 mg IV BID
Daily weight.
Strict I's and O's.
Consulted cardiology.
Echocardiogram on 04/03/2024 shows
Mildly reduced left ventricular systolic function.
LV ejection fraction is 45-50% by visual assessment.
Severe left atrial enlargement.
repeat echo 01/31 shows:
1. Dilated left ventricle (6.9 cm) with inferolateral hypokinesis and LVEF estimated at 50%.
2. Moderate biatrial enlargement.
3. Moderate to perhaps severe mitral regurgitation.
4. Mild to moderate tricuspid regurgitation.
5. Compared to echocardiogram 04/03/2024 mitral regurgitation has increased from mild MR. A ALDA can be considered to evalutate mitral regurgitation if clinically indicated.
Cardiology added farxiga
02/02
discharge on Lasix/Toprol-XL/losartan/spironolactone/farxiga
Nocturnal bradycardia with improvement when awake
Possible sleep apnea
Outpatient sleep study recommended
Paroxysmal atrial fibrillation
Continue Tikosyn and Eliquis
Telemetry monitoring
2D echocardiogram pending
Maintain potassium > 4 and magnesium > 2
GERD
Continue PPI
Chronic pain syndrome
On Percocet and Carisoprodol
CODE STATUS: Full code
DVT prophylaxis: Eliquis
Diet: Regular diet (patient refused cardiac diet)
Disposition: Discharge home today
Total time spent on today's encounter was 55 minutes which included time spent in counseling the patient/family regarding diagnosis and treatment plan as listed above, goals of care, and symptom management. Case was discussed with nursing staff,
specialists, and care coordinators/case management. All labs and imaging personally reviewed by me. Remainder the time spent in detailed review of previous records, lab data, imaging, and other medical provider documentation.
Anticipated Discharge: Today
Subjective/Interval History
-
Date of Service: February 02, 2025
Patient seen and examined at bedside, denies any chest pain , shortness of breath Improved, no abdominal pain, no nausea, no vomiting, no diarrhea or constipation.
lower extremity edema improved.
Objective Data
-
Labs:
Laboratory Results
02/02/25
08:37
WBC 9.6
Hgb 13.6
Hct 40.2
Plt Count 215
Sodium 137
Potassium 3.5
Chloride 99
Carbon Dioxide 28
BUN 24 H
Creatinine 1.0
Glucose 99
Calcium 9.4
Vital Signs:
Vital Signs
Temp Pulse Resp BP Pulse Ox
98.3 F 73 16 119/74 91
02/02/25 11:13 02/02/25 11:13 02/02/25 11:13 02/02/25 11:13 02/02/25 11:13
I&O
02/01/25 02/02/25 02/03/25
06:59 06:59 06:59
Intake Total 1540 / 1540 1104 / 1104
Output Total 1100 / 1100 2700 / 2700
Balance 440 / 440 -1596 / -1596
Physical Exam
-
General: Well Developed, Well Nourished, No Apparent Distress and Comfortable
HEENT: Normocephalic, Atraumatic, Moist Mucous Membranes, No Ptosis, PERRLA and Nose Appears Normal
Respiratory: Rales, Rhonchi, Crackles and Non Labored Respirations
Cardiac: Regular Rhythm and S1/S2
Breast: Deferred by me
GI: Soft, Nontender, Nondistended and Normal Bowel Sounds
Genito-urinary: No Costovertebral Tender
Musculoskeletal: No Clubbing, No Cyanosis, Edema, Left Upper Extrem and Edema, Right Lower Extrem
Skin: Warm
Neuro: Awake, Alert, Oriented, AO x 3 and No Motor Deficits
Psych: Calm
--- NOTE | 2025-02-02 11:42 | W.DCSUMMARY ---
Discharge Summary
Discharge Data
Date of Admission: 01/31/25
Date of Discharge: 02/02/25
Total time spent discharging patient (in min): 40
-
Pending Results: No
Hospital Course
Hospital course
69 male history of atrial fibrillation on Eliquis, anemia, chronic pain syndrome with chronic opioid dependence, dilated cardiomyopathy, aortic aneurysm ascending s/p repair presented with shortness of breath and help heart pounding sensation that
has been progressively getting worse over the last couple of days. Recently treated with antibiotics steroids for bacterial lung infection however since coming off of them symptoms have gotten worse. Denies lower extremity swelling and orthopnea.
When I evaluated him he was resting comfortably in bed however telemetry 45 A-fib atrial fibrillation once he awoke his heart rate improved and Been going in and out of atrial fibrillation patient with a heart rate ranging between 60 and 80 on
telemetry.
Improved shortness of breath with IV Lasix.
repeat echo 01/31 shows:
1. Dilated left ventricle (6.9 cm) with inferolateral hypokinesis and LVEF estimated at 50%.
2. Moderate biatrial enlargement.
3. Moderate to perhaps severe mitral regurgitation.
4. Mild to moderate tricuspid regurgitation.
5. Compared to echocardiogram 04/03/2024 mitral regurgitation has increased from mild MR. A ALDA can be considered to evalutate mitral regurgitation if clinically indicated.
Cardiology added farxiga
Cardio recommending discharge on Lasix/Toprol-XL/losartan/spironolactone/farxiga
Will be discharged on prednisone taper.
During hospitalization patient was treated from the following
Acute bronchitis, viral syndrome
Prednisone 40 mg daily
COVID and influenza negative
Maintain SpO? > 90%
Incentive spirometer and Acapella device
Possible obstructive sleep apnea ,pulmonology consulted
Discharge on prednisone taper
Acute on chronic systolic congestive heart failure
Patient presented with shortness of breath.
BNP level is elevated at 1300
Troponin level is 0.020
Recommending Lasix 40 mg IV BID
Daily weight.
Strict I's and O's.
Consulted cardiology.
Echocardiogram on 04/03/2024 shows
Mildly reduced left ventricular systolic function.
LV ejection fraction is 45-50% by visual assessment.
Severe left atrial enlargement.
repeat echo 01/31 shows:
1. Dilated left ventricle (6.9 cm) with inferolateral hypokinesis and LVEF estimated at 50%.
2. Moderate biatrial enlargement.
3. Moderate to perhaps severe mitral regurgitation.
4. Mild to moderate tricuspid regurgitation.
5. Compared to echocardiogram 04/03/2024 mitral regurgitation has increased from mild MR. A ALDA can be considered to evalutate mitral regurgitation if clinically indicated.
Cardiology added farxiga
02/02
discharge on Lasix/Toprol-XL/losartan/spironolactone/farxiga
Nocturnal bradycardia with improvement when awake
Possible sleep apnea
Outpatient sleep study recommended
Paroxysmal atrial fibrillation
Continue Tikosyn and Eliquis
Telemetry monitoring
2D echocardiogram pending
Maintain potassium > 4 and magnesium > 2
GERD
Continue PPI
Chronic pain syndrome
On Percocet and Carisoprodol
CODE STATUS: Full code
DVT prophylaxis: Eliquis
Diet: Regular diet (patient refused cardiac diet)
Disposition: Discharge home today
Total time spent on today's encounter was 40 minutes which included time spent in counseling the patient/family regarding diagnosis and treatment plan as listed above, goals of care, and symptom management. Case was discussed with nursing staff,
specialists, and care coordinators/case management. All labs and imaging personally reviewed by me. Remainder the time spent in detailed review of previous records, lab data, imaging, and other medical provider documentation.
Anticipated Discharge: Today
Discharge Plan
-
Patient Disposition: Home (Routine Discharge)
Discharge Diagnosis/Procedures: Acute bronchitis,
Acute on chronic systolic congestive heart failure.
Paroxysmal atrial fibrillation
Diet: Low Cholesterol and Low Sodium
Activity: As tolerated
Instructions: *CBC Heart Failure Instructions
Referrals:
Gomez Sandoval MD [Active, Pulmonary Medicine] - in one to two weeks
Referral Note: Asthma and [facility]AND[facility] suspected
Coral Young MD [Active, Cardiology] - in two to three weeks
Robert Brian DO [Family Provider, Family Practice]
Prescriptions:
New
losartan 50 mg Tablet
50 mg PO DAILY 30 Days Qty: 30 0RF
spironolactone 25 mg Tablet
25 mg PO DAILY 30 Days Qty: 30 0RF
dapagliflozin propanediol 10 mg Tablet
10 mg PO DAILY 30 Days Qty: 30 0RF
prednisone 10 mg tablet
See Taper PO DIRECTED Qty: 30 0RF
Taper: Prednisone DC Starting at 40 mg daily
40 mg Daily for 3 Days and 0 Hour
30 mg Daily for 3 Days and 0 Hour
20 mg Daily for 3 Days and 0 Hour
10 mg Daily for 3 Days and 0 Hour
metoprolol succinate 50 mg Tablet Extended Release 24 Hr
50 mg PO BID 30 Days Qty: 60 0RF
albuterol sulfate 90 mcg/actuation Hfa Aerosol Inhaler
2 puff inhalation R Q4HPRN PRN (Reason: Shortness of breath/wheezing) Qty: 8.5 0RF
Continued
Eliquis 5 MG tablet
5 mg PO BID
mirtazapine 45 mg Tablet
45 mg PO HS
oxycodone-acetaminophen 5-325 mg Tablet
2 tab PO Q4H PRN (Reason: moderate pain) Qty: 0 0RF
pantoprazole 40 mg Tablet,Delayed Release (Dr/Ec)
40 mg PO DAILY Qty: 30 0RF
carisoprodol 350 MG tablet
350 mg PO TID PRN (Reason: Muscle spasms) Qty: 0 0RF
lorazepam 1 MG tablet
1 mg PO TID PRN (Reason: ANXIETY) Qty: 0 0RF
Patient Comments:
PRESCRIPTION WRITTEN FOR PRN ON 03/27/24 BUT PATIENT TAKES EVER DAY
dofetilide 500 mcg Capsule
500 mcg PO Q12 Qty: 60 3RF
dofetilide [Tikosyn] 500 mcg Capsule
500 mcg PO BID
polyethylene glycol 3350 17 gram powder in packet
17 g PO DAILY
docusate sodium 100 mg capsule
100 mg PO BID
Trelegy Ellipta 100-62.5-25 mcg Blister With Device
1 inh INHALATION DAILY
Changed
spironolactone 25 mg Tablet
25 mg PO DAILY Qty: 30 0RF
furosemide [Lasix] 20 mg tablet
40 mg PO DAILY 30 Days Qty: 60 0RF
Discontinued
losartan 25 mg Tablet
25 mg PO DAILY
metoprolol succinate 100 mg Tablet Extended Release 24 Hr
100 mg PO DAILY
cefdinir 300 mg capsule
300 mg PO BID
Discharge Orders:
Discharge Patient (As Directed); Ordered 02/02/25
Ordered By: Javier Haley
Discharge Date and Time
Print Language: UGANDAN
--- NOTE | 2025-02-02 11:59 | CM ---
Patient seen at bedside on . Patient stated that he would now like [facility] to follow. CM completed iMM and signed form placed on chart. CM will sent tt to [facility] for follow up. CM will continue to follow for discharge planning needs.
Plan; home with [facility] to follow pending acceptance.
--- NOTE | 2025-02-02 12:31 | VNURNOTE ---
Home Health Liaison met with patient at bedside to discuss [facility] nurse/therapy, visits, schedule and homebound status. Patient is agreeable and understands that visits at home will be 2-3 x per week to assess and teach medical management. He
confirms he has a scale at home. 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 He is anxious to get back home. He declined a next day VN visit but was agreeable to a visit on [facility]. Patient is aware that [facility]
will contact them for start of care within 1-2 days after discharge from . Provided contact number for [facility].
[facility] referral completed in [facility].
== END 2025-02-02 14:30 | disposition home health service (06) | DRG 291 ==
LOC: 2 NORTH 04:55
PROVIDERS: ADMITTING PHYSICIAN Hospitalist; ATTENDING PHYSICIAN General Practice; EMERGENCY PHYSICIAN Student in an Organized Health Care Education/Training Program; FAMILY PHYSICIAN Family Medicine; OTHER PHYSICIAN Internal Medicine; OTHER PHYSICIAN Internal Medicine Critical Care Medicine
DX: I11.0 Hypertensive heart disease with heart failure (principal); I50.23 Acute on chronic systolic (congestive) heart failure; F11.20 Opioid dependence, uncomplicated; I42.0 Dilated cardiomyopathy; J20.9 Acute bronchitis, unspecified; I48.0 Paroxysmal atrial fibrillation; D64.9 Anemia, unspecified; G89.4 Chronic pain syndrome; Z79.01 Long term (current) use of anticoagulants; Z88.0 Allergy status to penicillin; Z79.899 Other long term (current) drug therapy; Z87.01 Personal history of pneumonia (recurrent); I34.0 Nonrheumatic mitral (valve) insufficiency; I07.1 Rheumatic tricuspid insufficiency; G47.30 Sleep apnea, unspecified; I25.10 Atherosclerotic heart disease of native coronary artery without angina pectoris; J45.909 Unspecified asthma, uncomplicated; K21.9 Gastro-esophageal reflux disease without esophagitis; L40.50 Arthropathic psoriasis, unspecified; Z82.49 Family history of ischemic heart disease and other diseases of the circulatory system
CPT/HCPCS: 71046; 80048; 80053; 81003; 81015; 82607; 83605; 83690; 83880; 84443; 84484; 85025; 85027; 87502; 87811; 93005; 93306; 94640; 99285